=== PATIENT | male | born 1985 | race Caucasian/White ===

== ENCOUNTER 2021-12-16 18:07 | Emergency (ER) | payer MEDICAID ==
[~2021-12-16] VITALS: Ht 188 cm; Wt 140.0 kg
[2021-12-16 18:58] LABS: CLARITY,URINE CLEAR (Clear); COLOR,URINE YELLOW (Yellow); GLUCOSE, URINE NEGATIVE (Neg); KETONES,URINE NEGATIVE (Neg); LEUKOCYTE ESTERASE ,URINE NEGATIVE (Neg); NITRITES, URINE NEGATIVE (Neg); OCCULT BLOOD,URINE MODERATE (Neg); PROTEIN,URINE >=300 mg/dl (Neg); UROBILINOGEN,URINE 0.2 E.U/dL (0.2-1.0)
[2021-12-16 19:01] LABS: UA COLLECTION TYPE CLN CATCH MIDSTREAM
[2021-12-16 19:02] LABS: BASOPHILS # (AUTO) 0.1 X10'3 (0-0.2); BASOPHILS % (AUTO) 0.8 % (0-1); EOSINOPHILS # (AUTO) 0.4 X10'3 (0-0.9); EOSINOPHILS % (AUTO) 4.4 % (0-6); HEMATOCRIT 43.7 % (42.0-52.0); HEMOGLOBIN 15.4 g/dl (14.0-17.9); LYMPHOCYTES # (AUTO) 3.6 X10'3 (1.1-4.8); LYMPHOCYTES % (AUTO) 39.7 % (21-51); MEAN CORPUSCULAR HEMOGLOBIN 30.5 PG (27.0-31.0); MEAN CORPUSCULAR HGB CONC 35.2 g/dL (33.0-36.5); MEAN CORPUSCULAR VOLUME 86.7 FL (78-98); MEAN PLATELET VOLUME 7.7 FL (7.4-10.4); MONOCYTES # (AUTO) 0.7 X10'3 (0-0.9); MONOCYTES % (AUTO) 7.6 % (2-12); NEUTROPHILS # (AUTO) 4.3 X10'3 (1.8-7.7); NEUTROPHILS % (AUTO) 47.5 % (42-75); PLATELET COUNT 257 X10'3 (140-440); RED BLOOD COUNT 5.04 X10'6 (4.70-6.10); RED CELL DISTRIBUTION WIDTH 12.9 % (11.5-14.5); WHITE BLOOD COUNT 9.1 X10'3 (4.5-11.0)
[2021-12-16 19:14] LABS: ALANINE AMINOTRANSFERASE 32 U/L (12-78); ALBUMIN 2.7 G/DL (3.4-5.0); ALBUMIN/GLOBULIN RATIO 0.7 (1.1-1.5); ALKALINE PHOSPHATASE 72 IU/L (46-116); ANION GAP 8 (8-16); ASPARTATE AMINO TRANSFERASE 17 U/L (10-37); BILIRUBIN,TOTAL 0.4 MG/DL (0.1-1.0); BLOOD UREA NITROGEN 19 MG/DL (7-18); BUN/CREATININE RATIO 18.1 (5.4-32.0); CALCIUM 8.4 MG/DL (8.5-10.1); CHLORIDE 109 MMOL/L (99-107); CREATININE 1.05 MG/DL (0.60-1.10); GLUCOSE 114 MG/DL (70-104); POTASSIUM 4.1 MMOL/L (3.5-5.1); SODIUM 142 MMOL/L (135-145); TOTAL CARBON DIOXIDE 25.3 MMOL/L (24-32); TOTAL PROTEIN 6.5 G/DL (6.4-8.2); eGFR 80 ML/MIN
[2021-12-16 19:17] LABS: LIPASE 102 U/L (73-393)
[2021-12-16 19:20] LABS: BACTERIA,URINE FEW /HPF (Neg); MUCUS STRANDS FEW /LPF (Neg); RBC,URINE 0-2 /HPF (0-2); SQUAMOUS EPITHELIAL CELL,UR FEW /LPF (FEW)
[2021-12-16 19:21] LABS: HYALINE CASTS 0-3 /LPF (NEGATIVE)
[2021-12-16] MEDS ORDERED: CEPH-585 PO (22:09)
[2021-12-16] MEDS ORDERED: ketorolac trometh inj. 60 MG/2 ML VIAL IM ONE (22:10)
[2021-12-16] MEDS ORDERED: cephalexin 250mg capsule PO ONE (22:10)
[2021-12-16 22:35] VITALS: BP 141/74
== END 2021-12-16 22:39 | disposition home or self-care (01) ==
LOC: ER 18:09
DX: S36.32XA Contusion of stomach, initial encounter (principal); N39.0 Urinary tract infection, site not specified; J45.909 Unspecified asthma, uncomplicated; F17.210 Nicotine dependence, cigarettes, uncomplicated; Z79.2 Long term (current) use of antibiotics; X58.XXXA Exposure to other specified factors, initial encounter; Y93.89 Activity, other specified; Y92.89 Other specified places as the place of occurrence of the external cause; Y99.8 Other external cause status
CPT/HCPCS: 36415; 71045; 74176; 80053; 81001; 83690; 84484; 85025; 85610; 87088; 93005; 96372; 99285; J1885

== ENCOUNTER 2022-01-28 11:24 | Emergency (ER) | payer MEDICAID ==
[~2022-01-28] VITALS: Ht 185.4 cm; Wt 159.1 kg
[~2022-01-28 11:24] MED LIST: CEPH-585 PO
[2022-01-28 11:29] VITALS: BP 157/94
[2022-01-28] MEDS ORDERED: HYDROcodone/acetaminophen 5mg/325mg tablet PO ONE (11:45)
[2022-01-28] MEDS ORDERED: ketorolac trometh inj. 60 MG/2 ML VIAL IM ONE (11:45)
[2022-01-28] MEDS ORDERED: ipratropium/albuterol 3ml nebule NEB ONE (12:25)
[2022-01-28 12:32] LABS: BASOPHILS # (AUTO) 0.2 X10'3 (0-0.2); BASOPHILS % (AUTO) 1.5 % (0-1); EOSINOPHILS # (AUTO) 0.4 X10'3 (0-0.9); EOSINOPHILS % (AUTO) 3.1 % (0-6); HEMATOCRIT 48.6 % (42.0-52.0); HEMOGLOBIN 16.6 g/dl (14.0-17.9); LYMPHOCYTES # (AUTO) 2.8 X10'3 (1.1-4.8); LYMPHOCYTES % (AUTO) 24.9 % (21-51); MEAN CORPUSCULAR HEMOGLOBIN 29.7 PG (27.0-31.0); MEAN CORPUSCULAR HGB CONC 34.2 g/dL (33.0-36.5); MEAN CORPUSCULAR VOLUME 86.9 FL (78-98); MEAN PLATELET VOLUME 8.6 FL (7.4-10.4); MONOCYTES # (AUTO) 0.6 X10'3 (0-0.9); MONOCYTES % (AUTO) 4.8 % (2-12); NEUTROPHILS # (AUTO) 7.5 X10'3 (1.8-7.7); NEUTROPHILS % (AUTO) 65.7 % (42-75); PLATELET COUNT 284 X10'3 (140-440); RED BLOOD COUNT 5.59 X10'6 (4.70-6.10); WHITE BLOOD COUNT 11.5 X10'3 (4.5-11.0)
[2022-01-28 12:46] LABS: ALANINE AMINOTRANSFERASE 33 U/L (12-78); ALBUMIN 2.7 G/DL (3.4-5.0); ALBUMIN/GLOBULIN RATIO 0.7 (1.1-1.5); ALKALINE PHOSPHATASE 68 IU/L (46-116); ANION GAP 10 (8-16); ASPARTATE AMINO TRANSFERASE 19 U/L (10-37); BILIRUBIN,TOTAL 0.4 MG/DL (0.1-1.0); BLOOD UREA NITROGEN 13 MG/DL (7-18); BUN/CREATININE RATIO 15.9 (5.4-32.0); CALCIUM 8.9 MG/DL (8.5-10.1); CHLORIDE 107 MMOL/L (99-107); CREATININE 0.82 MG/DL (0.60-1.10); GLUCOSE 113 MG/DL (70-104); POTASSIUM 4.4 MMOL/L (3.5-5.1); SODIUM 141 MMOL/L (135-145); TOTAL CARBON DIOXIDE 24.2 MMOL/L (24-32); TOTAL PROTEIN 6.5 G/DL (6.4-8.2); eGFR > 90 ML/MIN
[2022-01-28] MEDS ORDERED: INDO50CA96 PO ×3 (13:04→13:07)
[2022-01-28] MEDS ORDERED: HYDR-3965 PO (13:04)
[2022-01-28] MEDS ORDERED: ALLO100T PO ×3 (13:04→13:07)
[2022-01-28] MEDS ORDERED: COLC0.6T72 PO (13:06)
== END 2022-01-28 13:18 | disposition home or self-care (01) ==
LOC: ER 11:25
DX: M10.9 Gout, unspecified (principal); J45.909 Unspecified asthma, uncomplicated; Z79.899 Other long term (current) drug therapy
CPT/HCPCS: 36415; 71045; 80053; 84550; 85025; 85651; 94640; 96372; 99284; J1885; 94760

== ENCOUNTER 2022-01-30 05:30 | Emergency (ER) | payer MEDICAID ==
[~2022-01-30] VITALS: Ht 185.4 cm; Wt 136.4 kg
[~2022-01-30 05:30] MED LIST changes: +ALLO100T PO; +COLC0.6T72 PO; +HYDR-3965 PO; +INDO50CA96 PO
[2022-01-30 05:40] VITALS: BP 139/112
[2022-01-30] MEDS ORDERED: ketorolac trometh. 30mg/ml inj. IM ONE (06:10)
--- NOTE | 2022-01-30 08:16 | NUR ---
PT STATES HE IS LEAVING
== END 2022-01-30 10:15 | disposition left against medical advice (07) ==
LOC: ER 05:30
DX: M79.606 Pain in leg, unspecified (principal); M10.9 Gout, unspecified; Z53.21 Procedure and treatment not carried out due to patient leaving prior to being seen by health care provider

== ENCOUNTER 2022-02-13 06:15 | Emergency (ER) | payer MEDICAID ==
[~2022-02-13] VITALS: Ht 185.4 cm; Wt 145.4 kg
[2022-02-13 06:32] VITALS: BP 165/89
[2022-02-13 07:45] LABS: BASOPHILS # (AUTO) 0.1 X10'3 (0-0.2); BASOPHILS % (AUTO) 0.9 % (0-1); EOSINOPHILS # (AUTO) 0.3 X10'3 (0-0.9); EOSINOPHILS % (AUTO) 4.3 % (0-6); HEMATOCRIT 48.7 % (42.0-52.0); HEMOGLOBIN 16.9 g/dl (14.0-17.9); LYMPHOCYTES # (AUTO) 2.6 X10'3 (1.1-4.8); LYMPHOCYTES % (AUTO) 32.9 % (21-51); MEAN CORPUSCULAR HEMOGLOBIN 30.4 PG (27.0-31.0); MEAN CORPUSCULAR HGB CONC 34.6 g/dL (33.0-36.5); MEAN CORPUSCULAR VOLUME 87.9 FL (78-98); MEAN PLATELET VOLUME 7.9 FL (7.4-10.4); MONOCYTES # (AUTO) 0.5 X10'3 (0-0.9); MONOCYTES % (AUTO) 6.2 % (2-12); NEUTROPHILS # (AUTO) 4.4 X10'3 (1.8-7.7); NEUTROPHILS % (AUTO) 55.7 % (42-75); PLATELET COUNT 304 X10'3 (140-440); RED BLOOD COUNT 5.54 X10'6 (4.70-6.10); RED CELL DISTRIBUTION WIDTH 13.2 % (11.5-14.5); WHITE BLOOD COUNT 7.9 X10'3 (4.5-11.0)
[2022-02-13 08:00] LABS: ALANINE AMINOTRANSFERASE 44 U/L (12-78); ALBUMIN 2.5 G/DL (3.4-5.0); ALBUMIN/GLOBULIN RATIO 0.7 (1.1-1.5); ALKALINE PHOSPHATASE 74 IU/L (46-116); BILIRUBIN,TOTAL 0.7 MG/DL (0.1-1.0); BLOOD UREA NITROGEN 19 MG/DL (7-18); BUN/CREATININE RATIO 19.8 (5.4-32.0); CALCIUM 8.7 MG/DL (8.5-10.1); CREATININE 0.96 MG/DL (0.60-1.10); GLUCOSE 121 MG/DL (70-104); MAGNESIUM 1.8 MG/DL (1.5-2.4); TOTAL CARBON DIOXIDE 21.1 MMOL/L (24-32); TOTAL PROTEIN 6.1 G/DL (6.4-8.2); eGFR 89 ML/MIN
[2022-02-13 08:16] LABS: ANION GAP 8 (8-16); CHLORIDE 106 MMOL/L (99-107); POTASSIUM 4.4 MMOL/L (3.5-5.1); SODIUM 135 MMOL/L (135-145)
[2022-02-13 08:36] LABS: ASPARTATE AMINO TRANSFERASE 24 U/L (10-37)
[2022-02-13] MEDS ORDERED: colchicine 0.6mg tablet PO ONE (09:00)
[2022-02-13] MEDS ORDERED: triamcinolone acetonide 40mg/ml inj IM ONE (09:00)
[2022-02-13] MEDS ORDERED: naproxen 500mg tablet PO ONE (09:00)
[2022-02-13] MEDS ORDERED: INDO50CA96 PO (09:09)
[2022-02-13] MEDS ORDERED: COLC1TAB2 PO (09:09)
== END 2022-02-13 09:27 | disposition home or self-care (01) ==
LOC: ER 06:16
DX: R22.41 Localized swelling, mass and lump, right lower limb (principal); M10.9 Gout, unspecified; J45.909 Unspecified asthma, uncomplicated; Z79.899 Other long term (current) drug therapy; Z79.2 Long term (current) use of antibiotics
CPT/HCPCS: 36415; 80053; 83735; 83880; 85025; 93971; 96372; 99284; J3301

== ENCOUNTER 2022-02-22 06:55 | Emergency (ER) | payer MEDICAID ==
[~2022-02-22] VITALS: Ht 185.4 cm; Wt 150.0 kg
[~2022-02-22 06:55] MED LIST changes: +COLC1TAB2 PO
[2022-02-22 08:40] VITALS: BP 176/91
[2022-02-22] MEDS ORDERED: naproxen 500mg tablet PO ONE (09:25)
[2022-02-22 09:55] LABS: CLARITY,URINE CLEAR (Clear); COLOR,URINE YELLOW (Yellow); GLUCOSE, URINE NEGATIVE (Neg); KETONES,URINE NEGATIVE (Neg); LEUKOCYTE ESTERASE ,URINE NEGATIVE (Neg); NITRITES, URINE NEGATIVE (Neg); OCCULT BLOOD,URINE MODERATE (Neg); PROTEIN,URINE >=300 mg/dl (Neg); UROBILINOGEN,URINE 0.2 E.U/dL (0.2-1.0)
[2022-02-22 10:02] LABS: UA COLLECTION TYPE CLN CATCH MIDSTREAM
[2022-02-22 10:07] LABS: BACTERIA,URINE NONE SEEN /HPF (Neg); SQUAMOUS EPITHELIAL CELL,UR FEW /LPF (FEW); WBC,URINE 0-4 /HPF (0-4)
[2022-02-22 10:19] LABS: BASOPHILS # (AUTO) 0.1 X10'3 (0-0.2); BASOPHILS % (AUTO) 0.5 % (0-1); EOSINOPHILS # (AUTO) 0.2 X10'3 (0-0.9); EOSINOPHILS % (AUTO) 1.6 % (0-6); HEMATOCRIT 49.5 % (42.0-52.0); LYMPHOCYTES # (AUTO) 1.3 X10'3 (1.1-4.8); LYMPHOCYTES % (AUTO) 11.1 % (21-51); MEAN CORPUSCULAR HEMOGLOBIN 30.3 PG (27.0-31.0); MEAN CORPUSCULAR HGB CONC 34.3 g/dL (33.0-36.5); MEAN CORPUSCULAR VOLUME 88.2 FL (78-98); MEAN PLATELET VOLUME 8.4 FL (7.4-10.4); MONOCYTES # (AUTO) 0.9 X10'3 (0-0.9); MONOCYTES % (AUTO) 7.5 % (2-12); NEUTROPHILS # (AUTO) 9.2 X10'3 (1.8-7.7); NEUTROPHILS % (AUTO) 79.3 % (42-75); PLATELET COUNT 280 X10'3 (140-440); RED BLOOD COUNT 5.61 X10'6 (4.70-6.10); RED CELL DISTRIBUTION WIDTH 13.8 % (11.5-14.5); WHITE BLOOD COUNT 11.7 X10'3 (4.5-11.0)
[2022-02-22 10:29] LABS: ALANINE AMINOTRANSFERASE 30 U/L (12-78); ALBUMIN 2.6 G/DL (3.4-5.0); ALBUMIN/GLOBULIN RATIO 0.7 (1.1-1.5); ALKALINE PHOSPHATASE 67 IU/L (46-116); ANION GAP 9 (8-16); ASPARTATE AMINO TRANSFERASE 14 U/L (10-37); BILIRUBIN,TOTAL 0.5 MG/DL (0.1-1.0); BLOOD UREA NITROGEN 16 MG/DL (7-18); BUN/CREATININE RATIO 18.2 (5.4-32.0); CALCIUM 8.8 MG/DL (8.5-10.1); CHLORIDE 108 MMOL/L (99-107); CREATININE 0.88 MG/DL (0.60-1.10); GLUCOSE 121 MG/DL (70-104); LIPASE 147 U/L (73-393); POTASSIUM 4.2 MMOL/L (3.5-5.1); SODIUM 141 MMOL/L (135-145); TOTAL PROTEIN 6.1 G/DL (6.4-8.2); eGFR > 90 ML/MIN
[2022-02-22] MEDS ORDERED: NAPR-56 PO (10:43)
== END 2022-02-22 11:28 | disposition home or self-care (01) ==
LOC: ER 06:57
DX: U07.1 COVID-19 (principal); J45.909 Unspecified asthma, uncomplicated; F17.200 Nicotine dependence, unspecified, uncomplicated
CPT/HCPCS: 36415; 80053; 81001; 83690; 84550; 85025; 99283

== ENCOUNTER 2025-06-09 08:13 | Inpatient (IN) | payer MEDICAID ==
[~2025-06-09] VITALS: Ht 188 cm; Wt 126.5 kg
[~2025-06-09 08:13] MED LIST changes: -CEPH-585 PO; -COLC0.6T72 PO; +COLC0.6T78 PO; -COLC1TAB2 PO; +NAPR-56 PO; +PROB1TAB2 PO
[2025-06-09 09:21] LABS: MEAN PLATELET VOLUME 7.9 FL (7.4-10.4); RED CELL DISTRIBUTION WIDTH 13.6 % (11.5-14.5)
--- NOTE | 2025-06-09 09:22 | Physician Documentation ---
History of Present Illness ~ General Chief Complaint: See Chief Complaint Stated Complaint: ABNORMAL LABS Time Seen by MD: 09:06 Primary Medical Doctor: No PCP Mode of Arrival: EMS History of Present Illness Initial Comments This 40-year-old male patient with a history of kidney disease was transferred here from [facility] for consult with Nephrology secondary to acute renal failure failure with a an increased creatinine of 7.26 in elevated BUN. Patient does have a history of hypertension and has been noncompliant with his medications. 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 Patient is currently asymptomatic States he has never had dialysis Medication Reconciliation Allergies: Coded Allergies: No Known Allergies (Unverified , 02/22/22) Scheduled Apixaban (Eliquis), 1 TAB PO BID, (Reported) Atorvastatin Calcium (Atorvastatin Calcium), 1 TAB PO HS, (Reported) Furosemide (Furosemide), 1 TAB PO DAILY, (Reported) Lisinopril (Lisinopril), 1 TAB PO DAILY, (Reported) Pantoprazole Sodium (Pantoprazole Sodium), 1 TAB PO BID, (Reported) Potassium Chloride (Klor-Con 8), 1 TAB PO DAILY, (Reported) Sodium Bicarbonate (Antacid), 1 TAB PO TID, (Reported) Tiotropium [place] (Spiriva), 1 CAP INH DAILY, (Reported) Scheduled PRN Albuterol Sulfate (Albuterol Sulfate), 3 ML NEB Q4H PRN for SOB or wheezing, (Reported) Albuterol Sulfate/Budesonide (Airsupra 90-80 Mcg Inhaler), 2 PUFFS INH for SOB or wheezing, (Reported) Clonidine HCl (Clonidine HCl), 1 TAB PO BID PRN for anxiety, (Reported) Discontinued Medications Allopurinol* (Allopurinol*), 1 TAB PO DAILY PRN for gout Discontinued Reason: patient no longer taking Colchicine (Colchicine), 1 TAB PO DAILY Discontinued Reason: patient no longer taking Colchicine/Probenecid (Probenecid-Colchicine Tabs), 1 TAB PO TID Discontinued Reason: patient no longer taking Hydrocodone Bit/Acetaminophen 5/325 MG ([place] 5/325 MG), 1 TABLET PO TID PRN for pain Discontinued Reason: patient no longer taking Indomethacin (Indomethacin), 1 CAP PO Q8H Discontinued Reason: completed med therapy Naproxen (Naproxen), 1 TAB PO Q12H Discontinued Reason: patient no longer taking Past Medical History Past Medical History: Asthma, Gout Past Surgical History: no surgical history Smoking Status: Current every day smoker Alcohol Use: None Drug Use: none Lives with: Family Lives In: Home Physical Exam Physical Exam Vital Signs: Temperature: 97.8, Source: Oral, Heart Rate: 87, Respiratory Rate: 18, BP: 160/98, Pulse Oximetry: 96, Weight: 126.530 Oxygen Flow Rate: 0 Physical Exam General: Alert, no apparent distress. Respiratory: Lungs clear, no respiratory distress. Cardiovascular: Regular rate and rhythm, no murmurs. Gastrointestinal: Soft, nontender, nondistended. Bowels sounds present. Neurologic: Oriented x4. Psychiatric: Normal mood and affect. Skin: Normal color, warm and dry. No edema, no ecchymosis. Progress Results/Orders Results/Orders Orders - RIO PAIZ COLD MILL OPERATOR Page Hospitalist (06/09/25 ) Medications Received in ER Medications (Trade) Dose Ordered Sig/Roxanne Route PRN Reason Start Time Stop Time Status Last Admin Dose Admin (morphine inj.) 1 mg Q8H PRN IV moderate or severe pain 4-10 06/09/25 11:35 06/09/25 12:22 1 MG Vital Signs 06/09/25 06/09/25 08:18 09:32 Temp 97.8 Pulse 87 98 Resp 18 18 B/P (MAP) 160/98 180/150 (160) Pulse Ox 96 96 O2 Flow Rate 0 Laboratory Tests Test 06/09/25 09:15 White Blood Count 9.5 Red Blood Count 3.73 L Hemoglobin 11.4 L Hematocrit 33.6 L Mean Corpuscular Volume 90.0 Mean Corpuscular Hemoglobin 30.6 Mean Corpuscular Hemoglobin Concent 34.0 Red Cell Distribution Width 13.6 Platelet Count 201 Mean Platelet Volume 7.9 Neutrophils (%) (Auto) 96.2 H Lymphocytes (%) (Auto) 3.0 L Monocytes (%) (Auto) 0.5 L Eosinophils (%) (Auto) 0 Basophils (%) (Auto) 0.3 Neutrophils # (Auto) 9.2 H Lymphocytes # (Auto) 0.3 L Monocytes # (Auto) 0.1 Eosinophils # (Auto) 0.0 Basophils # (Auto) 0.0 CBC Comment Sodium Level 142 Potassium Level 5.1 Chloride Level 112 H Carbon Dioxide Level 17.1 L Anion Gap 13 Blood Urea Nitrogen 45 H Creatinine 7.32 H Estimated GFR/1.73 m2 8 BUN/Creatinine Ratio 6.1 L Glucose Level 148 H Calcium Level 7.7 L Phosphorus Level 6.2 H Magnesium Level 2.5 H Ferritin 199 Albumin 2.5 L Chemistry Comments Medical Decision Making Additional information obtaine: old records Findings Patient was admitted for evaluation by Nephrology and probable dialysis Differential Diagnosis t Departure Disposition: 09 ADMITTED INPATIENT Impression: Primary Impression: MARIAM (acute kidney injury) Condition: Stable Referrals: NO PRIMARY CARE PROVIDER (PCP) Critical Care Note Total Time (mins): 30 Critical Care Note The very real possibility of a deterioration of this patient's condition required the highest level of my preparedness for sudden, emergent intervention. I provided critical care services, which included medication orders, frequent reevaluations of the patient's condition and response to treatment, ordering and reviewing test results, and discussing the case with various consultants. Excludes time spent performing separately billable procedures. The critical care time associated with the care of the patient was. Signature Scribe Signature: g Attestation: Scribed for Rio Paiz Towel Inspector by Rio Vargas NP . 06/09/25 11:31 RIO PAIZ COLD MILL OPERATOR Jun 09, 2025 09:22
[2025-06-09 09:46] LABS: CREATININE 7.32 MG/DL (0.60-1.10); TOTAL CARBON DIOXIDE 17.1 MMOL/L (24-32); eCRCL 16 ML/MIN; eGFR 8 ML/MIN
[2025-06-09] MEDS ORDERED: bisacodyl 10mg suppository rectal RC PRN (11:35)
[2025-06-09] MEDS ORDERED: magnesium sulf-water 2g/50mL 50 ML IV PRN (11:35)
[2025-06-09] MEDS ORDERED: potassium Cl 20 mEq SR tablet PO PRN ×2 (11:35)
[2025-06-09] MEDS ORDERED: ondansetron/PF 4mg/2ml inj IV PRN (11:35)
[2025-06-09] MEDS ORDERED: magnesium Cl slow-release 64mg tablet PO PRN (11:35)
[2025-06-09] MEDS ORDERED: magnesium sulf-water 4G/100mL 100 ML IV PRN (11:35)
[2025-06-09] MEDS ORDERED: potassium Cl 40MEQ/1/2NS 520ml 520 ML IV PRN (11:35)
--- NOTE | 2025-06-09 12:25 | RADIOLOGY REPORT ---
RENAL ULTRASOUND REASON FOR EXAM: acute renal failure COMPARISON: CT ABDOMEN PELVIS on DOS: 12/16/21 TECHNIQUE: Real-time sector scans in multiple planes were obtained over the kidneys, ureters and bladder. FINDINGS: Images are suboptimal due to patient body habitus. The right kidney measures 12.0 cm. The left kidney measures 10.9 cm. No mass is identified. There is no hydronephrosis. The urinary bladder could not be evaluated as the patient was unable to lie still for examination. IMPRESSION: Normal sonographic appearance of the kidneys. No abnormality identified within the limitations of patient body habitus and motion.
[2025-06-09] MEDS: sodium bicarbonate (8.4%) inj. 50 MEQ in dextrose 5%-water 1,000 ML IV SCH (12:34)
[2025-06-09] MEDS: cloNIDine 0.2 MG/24 HR patch (7 day patch) TD SCH (13:08)
[2025-06-09] MEDS: PERFLUTREN PROTEIN-A MICROSPHR (Optison) 0.22 MG/ML 3ML VIAL IV ONE (13:14)
[2025-06-09 13:23] LABS: PHOSPHORUS 6.2 MG/DL (2.3-4.5)
--- NOTE | 2025-06-09 13:54 | RADIOLOGY REPORT ---
CHEST RADIOGRAPH Indication: MARIAM - assess for pleural effusion Technique: Single frontal view of the chest was obtained Comparison: CHEST,SINGLE VIEW on DOS: 01/28/22, CHEST,SINGLE VIEW on DOS: 12/16/21 FINDINGS: Lines and Tubes: None Lungs: No focal consolidation. Pleura: No effusion. No pneumothorax. Cardiomediastinal contours: Unremarkable Bones: No acute osseous abnormality. IMPRESSION: No acute cardiopulmonary disease.
[2025-06-09 14:07] LABS: % IRON SATURATION 15 % (11-46)
[2025-06-09 14:32] VITALS: PULSE 88; RESP 22; O2SAT 96
[2025-06-09] MEDS: ipratropium/albuterol 3ml nebule NEB PRN (14:32)
[2025-06-09 14:40] VITALS: PULSE 88; RESP 20
[2025-06-09] MEDS ORDERED: LISI20TA28 PO (15:18)
[2025-06-09] MEDS ORDERED: CLON0.2T PO (15:18)
[2025-06-09] MEDS ORDERED: ALBU10.7 INH (15:59)
[2025-06-09] MEDS ORDERED: ATOR40TA72 PO (15:59)
[2025-06-09] MEDS ORDERED: FURO20TA4 PO (15:59)
[2025-06-09] MEDS ORDERED: ALBU2.5V13 NEB (15:59)
[2025-06-09] MEDS ORDERED: APIX5TAB3 PO (15:59)
[2025-06-09] MEDS ORDERED: TIOT18CA3 INH (15:59)
[2025-06-09] MEDS ORDERED: SODI650T29 PO (15:59)
[2025-06-09] MEDS ORDERED: PANT40TA54 PO (15:59)
[2025-06-09] MEDS ORDERED: POTA8TAB69 PO (15:59)
--- NOTE | 2025-06-09 18:37 | CARDIOLOGY REPORT ---
APPROVED REPORT EXAM: Comprehensive 2D, Doppler, and color-flow Echocardiogram. Patient Location: ER 6 Blood Pressure: 167/96 mmHg Heart Rate: 89 bpm Rhythm: SINUS Indications SHORTNESS OF BREATH HYPERTENSION Sex Offender Treatment Professional: none Previous echo: none 2D Dimensions RVDd 4.0 cm LA Diam 5.5 cm IVSd 1.2 (0.7-1.1cm) LVDd 5.0 cm PWd 1.7 (0.7-1.1cm) IVSs 1.4 (0.8-1.2cm) LVDs 3.2 (2.5-4.0cm) PWs 1.9 (0.8-1.2cm) LVOT Diameter 2.17 (1.8-2.4cm) LVEF(%) 63.5 (>50%) Ao Asc Diam. 3.17 cm FS (%) 34.5 % SV 70.8 ml CO 7.4 L/min M-Mode Dimensions Left Atrium(MM) 4.82 (2.5-4.0cm) IVSd 1.03 (0.7-1.1cm) LVDd 5.23 (4.0-5.6cm) Aortic Root 3.09 (2.2-3.7cm) PWd 1.36 (0.7-1.1cm) Aortic Cusp Exc 2.31 (1.5-2.0cm) IVSs 1.52 cm LVDs 3.50 (2.0-3.8cm) FS (%) 33 % PWs 1.52 cm ESV(Teich) 50.9 ml LVEF(%) 61 (>50%) Biplane 2D LA Volumes LA ESV Index 38.29 mL/m2 Aortic Valve AoV Peak Checo. 171.8 cm/s AoV VTI 33.9 cm AO Peak GR. 11.8 mmHg AO Mean GR. 6 mmHg LVOT VTI 30.83 cm LVOT Peak Checo. 154.8 cm/s ROBERT(VTI)/BSA 3.38 cm2/m2 ROBERT (VTI) 3.38 cm2 AV DI 0.91 % Mitral Valve MV E Velocity 111.1 cm/s MV Peak Gr. 13 mmHg MV DECEL TIME 136 ms MV A Velocity 140.5 cm/s MV PHT 44 ms E/A Ratio 0.8 MVA (PHT) 5.00 cm2 MV VMax 178.8 cm/s TDI Medial E' P. V 14.39 cm/s E/Medial E' 7.7 Pulmonary Vein S1 Velocity 66.0 cm/s D2 Velocity 42.4 cm/s PVa Velocity 32.6 cm/s PVa Duration 82 msec LEFT VENTRICLE Normal LV size and function. Mild concentric hypertrophy. Overall LVEF is 60-65%. RIGHT VENTRICLE RV is mildly dilated with normal systolic function. ATRIA Left atrium is moderately dilated. Right atrium size is normal. AORTIC VALVE Trileaflet AV appears mildly sclerotic without stenosis. Trace insufficiency. MITRAL VALVE Normal MV annulus without calcification or stenosis. Trace regurgitation. TRICUSPID VALVE TV appears structurally normal with trace regurgitation. PULMONIC VALVE Normal PV without stenosis, physiologic insufficiency. GREAT VESSELS Aortic root is normal in size. Ascending aorta is normal in size. PERICARDIUM Normal pericardium. No effusion. Other Information Study Quality: Adequate Conclusion Overall LVEF is 60-65%. Normal LV size and function. Mild concentric hypertrophy. RV is mildly dilated with normal systolic function. Trileaflet AV appears mildly sclerotic without stenosis. Trace insufficiency. Normal MV annulus without calcification or stenosis. Trace regurgitation. Normal PV without stenosis, physiologic insufficiency. Normal pericardium. No effusion.
[2025-06-09 19:21] LABS: CREATININE 7.86 MG/DL (0.60-1.10); PHOSPHORUS 5.5 MG/DL (2.3-4.5); TOTAL CARBON DIOXIDE 19.0 MMOL/L (24-32); eCRCL 15 ML/MIN; eGFR 8 ML/MIN
[2025-06-09] MEDS: K and/or MAG REPLACEMENT MC SCH (20:00)
[2025-06-09] MEDS: insulin regular, human 10 units/0.1 ml syringe SQ ONE ×2 (20:10→23:05)
[2025-06-09] MEDS: albuterol 2.5 MG/3 ML nebule NEB SCH (20:22)
[2025-06-09 20:25] VITALS: PULSE 98; RESP 18; O2SAT 97
[2025-06-09 20:29] VITALS: PULSE 107; RESP 18
--- NOTE | 2025-06-09 21:18 | HISTORY AND PHYSICAL ---
History & Physical Providers to CC ~ History of Present Illness Reason for Admit\Complaint: Acute renal failure History of Present Illness This 40-year-old male patient with a history of kidney disease was transferred here from [facility] for consult with Nephrology secondary to acute renal failure failure with a an increased creatinine of 7.26 in elevated BUN. Patient went to [facility] for shortness of breaths. He mentioned he has history of blood clot almost 1-1/2 years back diagnosed in [facility]. Patient does have a history of hypertension and has been noncompliant with his medications off and on . he is only taking lisinopril and clonidine currently . Clonidine he is taking for anxiety as per his medication bottle.Patient is current smoker one pack last three days for him. He use cannabis at night. Denied use of any alcohol use. 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 Patient is currently asymptomatic except for elevated blood pressure. Hospitalist services contacted for admission and further management. No other symptoms . Allergies: Coded Allergies: No Known Allergies (Unverified , 02/22/22) Home Medications Home Medications Active Reported Spiriva (Tiotropium [place]) 18 Mcg Cap.w.dev 1 Cap INH DAILY Antacid (Sodium Bicarbonate) 650 Mg Tablet 1 Tab PO TID Klor-Con 8 (Potassium Chloride) 8 Meq Tablet.er 1 Tab PO DAILY Atorvastatin Calcium 40 Mg Tablet 1 Tab PO HS Furosemide 20 Mg Tablet 1 Tab PO DAILY Eliquis (Apixaban) 5 Mg Tablet 1 Tab PO BID Pantoprazole Sodium 40 Mg Tablet.dr 1 Tab PO BID Airsupra 90-80 Mcg Inhaler (Albuterol Sulfate/Budesonide) 90 Mcg-80 Mcg/Actuation Hfa.aer.ad 2 Puffs INH PRN Albuterol Sulfate (Albuterol) 2.5 Mg/3 Ml (0.083 %) Vial.neb 3 Ml NEB Q4H PRN Lisinopril 20 Mg Tablet 1 Tab PO DAILY 30 Days Clonidine HCl 0.2 Mg Tablet 1 Tab PO BID PRN 30 Days Past Medical History Past Medical History History of blood clot in past , hypertension,? Anxiety , ? CHF Past Surgical History Surgical History Comment No pertinent surgical history Past Social History Social History Comment Patient is current smoker one pack last three days for him. He use cannabis at night. Denied use of any alcohol use. Patient is able to ambulate, lives with his 2-year-old Son. Exam Vitals: Vital Signs Date Time Temp Pulse Resp B/P (MAP) Pulse Ox O2 Delivery O2 Flow Rate FiO2 06/09/25 20:29 107 18 Room Air 0.0 06/09/25 20:25 97 21 06/09/25 17:37 164/110 (128) 06/09/25 08:18 97.8 General: General-patient not in any acute distress, alert awake oriented, obese, age- appropriate,appear anxious HEENT-atraumatic normocephalic, neck supple without elevated JVD, no thyromegaly or carotid bruit. No lymphadenopathy bilaterally. Eyes-no icterus or pallor seen in eyes Chest-clear to auscultation bilaterally, breathing nonlabored no tachypnea, no wheezing, no crepitation, no crackles. Heart-S1-S2 normal, regular heart rate no murmur Abdomen bowel sounds positive on auscultation, soft nondistended nontender no guarding, no rigidity Skin no active skin rash Neurology-grossly intact, nonfocal alert awake oriented Extremity- no pedal edema able to move all 4 extremities Psychiatry - patient is not confused or agitated cooperated during physical examination, appear anxious Diagnostic Data Last Recorded Lab Results: 06/09/25 0915 06/09/25 1857 Advance Care Planning Advanced Care plannin - 30 Minutes Additional Plan This 40-year-old male patient with a history of kidney disease was transferred here from [facility] for consult with Nephrology secondary to acute renal failure failure with a an increased creatinine of 7.26 in elevated BUN. Patient went to [facility] for shortness of breath. Patient is admitted today for acute renal failure, uncontrolled hypertension. Nephrology consultation requested from Dr. Coleman who is willing to see the patient tomorrow. Patient is started on IV fluids with soda bicarbonate, ordered renal ultrasound. Antihypertensive medication started for uncontrolled blood pressure. We will continue to monitor patient's labs and vitals closely . Needs physical therapy evaluation before discharge . Code status discussed with the patient patient wishes full code. Time spent in discussing code status 16 minutes. We will do home medication reconciliation once updated in electronic by nursing staff or pharmacist. Further management depending on response to treatment and as per recommendation by Nephrology specialist , Dr Jared . I will continue to follow patient in a.m. Date of Service: Jun 09, 2025 Billing Provider: RAMIRO SEGOVIA MD Common Visit Codes: 85071-[id number] INP/OBS CARE (HIGH) Secondary Visit Codes: 44140-[id number] CARE PLAN 30 MINUTES RAMIRO SEGOVIA MD Jun 09, 2025 21:18
[2025-06-09] MEDS: CALCIUM GLUC 1gm/50ml NACL,iso 50 ML IV ONE (22:41)
[2025-06-09] MEDS: dextrose 50%-water 50ml dispensing syringe IV ONE (22:49)
[2025-06-09] MEDS: insulin regular, human 10 units/0.1 ml syringe IV STA (23:06)
[2025-06-09] MEDS: sodium bicarbonate (8.4%) inj. 150 MEQ in dextrose 5%-water 1,000 ML IV SCH (23:09)
[2025-06-09] MEDS: sodium polystyrene sulfonate 15gm/60ml oral suspension PO ONE (23:11)
[2025-06-09] MEDS: heparin, porcine 5000 units/ml vial SQ SCH (23:17)
[2025-06-10] VITALS (26 sets, daily range): BP systolic 117–165; BP diastolic 65–91; PULSE 60–97; RESP 16–21; TEMP 97.2–98.3; O2SAT 89–97
[2025-06-10 00:03] LABS: LEUKOCYTE ESTERASE ,URINE NEGATIVE (Neg); NITRITES, URINE NEGATIVE (Neg); OCCULT BLOOD,URINE LARGE (Neg)
[2025-06-10 00:16] LABS: SQUAMOUS EPITHELIAL CELL,UR FEW /LPF (FEW); UA COLLECTION TYPE NON-SPECIFIED
[2025-06-10 02:43] LABS: CREATININE,URINE RANDOM 76.0 MG/DL
[2025-06-10 02:44] LABS: TOTAL PROTEIN,URINE RANDOM < 6.0 MG/DL
[2025-06-10 03:03] LABS: URINE AMPHETAMINE SCREEN NEGATIVE (Neg); URINE BARBITUATE SCREEN NEGATIVE (Neg); URINE BENZODIAZEPINES SCREEN NEGATIVE (Neg); URINE CANNABINOID SCREEN POSITIVE (Neg); URINE COCAINE SCREEN NEGATIVE (Neg); URINE METHADONE SCREEN NEGATIVE (Neg); URINE OPIATE SCREEN NEGATIVE (Neg); URINE PHENCYCLIDINE SCREEN NEGATIVE (Neg)
[2025-06-10 06:37] LABS: MEAN PLATELET VOLUME 7.7 FL (7.4-10.4); RED CELL DISTRIBUTION WIDTH 13.4 % (11.5-14.5)
[2025-06-10 07:03] LABS: CREATININE 7.77 MG/DL (0.60-1.10); LACTATE DEHYDROGENASE 222 U/L (85-227); PHOSPHORUS 7.0 MG/DL (2.3-4.5); TOTAL CARBON DIOXIDE 18.4 MMOL/L (24-32); eCRCL 15 ML/MIN; eGFR 8 ML/MIN
[2025-06-10 07:35] LABS: HIV ANTIBODY 1&2 RAPID NON-REACTIVE (Neg)
--- NOTE | 2025-06-10 08:13 | CONSULTATION REPORT ---
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 He has had a work up that ruled out serological disorders. He was found to have lot of interstitial changes as well along with the membranous nephropathy in the biopsy, when his creatinine was 5.1. He was prescribed Cytoxan, as he was not planning to have kid then, but patient recalls that he never got it filled. Also, his creatinine came down to 2.7ish when saw him for a follow up before he unfortunately . AT that time, he thought that the cytoxan was working for him. However, patient today tells me that he never went on it. also worked on referring him to transplant clinic for an evaluation. He was completely lost for follow up and yesterday he comes in to [facility] ER with a serum creatinine of 7+ with shortness of breath. he has had DVT about a year and a half ago, when h ws placed on liquis. He has been non compliant with his meds. He says he takes his lisinopril and clonidine but he forgets them as well frequently. He takes care of his 2 year old son as a single parent. He uses cannabis at night but no other drug abuse. He smokes 1 pack that lasts three days for him. He was in metabolic acidosis and hence he was transferred to [facility] for further care. His knowledge about his medical condition is very minimal. He is shell shocked today that he could potentially with his uncontrolled hypertension and his CKD 5 where he is now, and promises that he will buckle up henceforth and agrees to dialysis at [facility] three times a week without fail. He is also very motivated for renal transplant. will for completion sake, send off the serologyl. He has extensive tattoos all over the body. He says he does not have history of Hep B or C or HIV. I don't think he is taking the Eliquis at this time. Allergies: Coded Allergies: No Known Allergies (Unverified , 02/22/22) Home Medications Home Medications Active Reported Spiriva (Tiotropium [place]) 18 Mcg Cap.w.dev 1 Cap INH DAILY Antacid (Sodium Bicarbonate) 650 Mg Tablet 1 Tab PO TID Klor-Con 8 (Potassium Chloride) 8 Meq Tablet.er 1 Tab PO DAILY Atorvastatin Calcium 40 Mg Tablet 1 Tab PO HS Furosemide 20 Mg Tablet 1 Tab PO DAILY Eliquis (Apixaban) 5 Mg Tablet 1 Tab PO BID Pantoprazole Sodium 40 Mg Tablet.dr 1 Tab PO BID Airsupra 90-80 Mcg Inhaler (Albuterol Sulfate/Budesonide) 90 Mcg-80 Mcg/Actuation Hfa.aer.ad 2 Puffs INH PRN Albuterol Sulfate (Albuterol) 2.5 Mg/3 Ml (0.083 %) Vial.neb 3 Ml NEB Q4H PRN Lisinopril 20 Mg Tablet 1 Tab PO DAILY 30 Days Clonidine HCl 0.2 Mg Tablet 1 Tab PO BID PRN 30 Days Past Medical History Past Medical History History of blood clot in past , hypertension,? Anxiety , ? CHF CKD 5 membranous nephropathy biopsy proven. Past Surgical History Surgical History Comment nothing pertinent except kidney biopsy Past Social History Social History Comment Patient is current smoker one pack last three days for him. He use cannabis at night. Denied use of any alcohol use. Patient is able to ambulate, lives with his 2-year-old Son. ROS ROS extreme anxiety, depressed about the kidney disease, depressed about the need for dialysis, shortness of breath is better. has a good appetite. Exam Vitals: Vital Signs Date Time Temp Pulse Resp B/P (MAP) Pulse Ox O2 Delivery O2 Flow Rate FiO2 06/10/25 07:04 97 18 89 Room Air* 0 21 06/10/25 02:00 97.4 165/91 (115) General: Vital Signs: As above General: obese body habitus, no acute distress. Skin: No rashes, lumps, ulcers, blisters, purpura or petechiae HEENT: Anicteric sclera, HANH Neck: Supple and nontender without enlargement of the thyroid, or lymphadenopathy. Chest: Normal size and shape, no tenderness, CTA bilaterally Heart: Regular. No jugular venous distention, S1 and S2 heard , no gallop Abdomen: Soft and non tender no organomegaly,BS+ obese built. extensive tattoos all over the body Extremities: + pedal edema Neuro: Nonfocal. Diagnostic Data Last Recorded Lab Results: 06/10/2562306/10/25623 Problems: (1) ESRD (end stage renal disease) Assessment & Plan: hd to be started today. see below. 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 Now hehas advanced kidney disease and treating at this stage with cytoxan is not going to alter the course and the side effects of cytoxan can be prohibitive to use him at this time. will proceed with dialysis as soon as can get me a TDC placed. will start pacing him for outpatient dialysis in [facility] three times a week. renal diet strictly. renal dietitian consult. hypertension neeeds to be in absolute control. I have explained all these. I certainly hope and pray he remains compliant. i have spoken to Facility admin of [facility] (3) Accelerated hypertension Assessment & Plan: optimize meds. needs to be on ARB. will get him started on losartan and maximize it. sodium restriction to 2 g per day. (4) Anemia in CKD (chronic kidney disease) Assessment & Plan: epogen with dialysis. replace iron if necessary via iv based on the iron saturation (5) MARIAM (acute kidney injury) Status: Acute Assessment & Plan: proceed with dialysis. spent enough time with him today to explain the process. ALYSSA CUI MD Jun 10, 2025 08:13
[2025-06-10] MEDS ORDERED: albumin (human) 25% 100ml IV 100 ML IV PRN (08:15)
[2025-06-10] MEDS: iron sucrose complex injection 200 MG in normal saline 100ml IV soln 100 ML IV SCH (09:18)
[2025-06-10] MEDS ORDERED: midazolam 1 mg/ML 2ml injection ONE ×3 (10:24→11:02)
[2025-06-10] MEDS ORDERED: heparin 1,000unit/ml 10ml vial 10 ML ONE (10:24)
[2025-06-10] MEDS ORDERED: LIDOcaine 1% 30ml preserv. free vial ONE (10:24)
[2025-06-10] MEDS ORDERED: fentaNYL/PF 50MCG/1 ML 2ML syringe ONE ×2 (10:24→11:02)
[2025-06-10] MEDS ORDERED: heparin 1,000 UNITS/NS 500ml 500 ML ONE (11:03)
[2025-06-10] MEDS: EPOETIN ALFA-EPBX 20,000 UNIT/ML 1 ML MDV IV ONE (14:13)
[2025-06-10] MEDS: mannitol 12.5gm/50mL VIAL IV ONE (14:13)
[2025-06-10] MEDS: heparin 1,000 units/ml 10ml inj HE ONE ×2 (14:34→14:35)
[2025-06-10] MEDS: FLU VACC TS2025-26(6MOS UP)/PF (FLULAVAL) 45 MCG/0.5 ML SYRINGE IMVAC ONE (15:00)
[2025-06-10] MEDS: HYDROcodone/acetaminophen 5mg/325mg tablet PO PRN (16:18)
--- NOTE | 2025-06-10 18:43 | CARDIOLOGY REPORT ---
DATE OF SERVICE: 06/10/2025 DICTATING PHYSICIAN: ALBAN ROMAN DO PROCEDURE: Tunneled internal jugular dialysis catheter insertion. PREPROCEDURAL DIAGNOSIS: Chronic kidney disease. POSTPROCEDURAL DIAGNOSIS: Chronic kidney disease. PROCEDURES PERFORMED: 1. Right upper extremity venogram. 2. Placement of a 15.5-Japanese tunnel dialysis catheter. COMPLICATIONS: None. CONTRAST: Approximately 20 mL. SEDATION: Moderate with fentanyl and Versed. FLUOROSCOPY TIME: 0.5 minutes. CLINICAL HISTORY: Rapidly progressive renal insufficiency requiring a tunneled dialysis catheter for hemodialysis. DESCRIPTION OF PROCEDURE: With a right arm intravenous line in place, a contrast injection was performed so as to highlight the location of the right subclavian vein. Then, using a micropuncture set, the distal IJ and superior vena cava was easily entered and a small guidewire was placed in the central venous circulation. A small joshua was made around the guidewire and a second joshua approximately 8 cm distal and caudal to the small guidewire was also made. Using a blunt tunneling attachment to the dialysis catheter, a short anterior tunnel was made up to the guidewire and a 15.5-Japanese DuraMax catheter was brought through the tunnel in retrograde fashion. The transitional catheter for the micropuncture set was exchanged for a 0.035 guidewire. Then, using two progressively larger dilators, a 15-Japanese valved peel-away sheath was placed in the central venous circulation. The dialysis catheter was passed into the 15-Japanese sheath. The sheath was then peeled away and the catheter arc was placed beneath the skin. The skin was sutured over with two interrupted 4-0 Monocryl sutures. The proximal end of the dialysis catheter was then secured with nonabsorbable suture. Edges of the tunnel entry site were closed with 4-0 Monocryl. Fluoroscopy demonstrated that the dialysis catheter was in the mid right atrium. There were no complications. ALBAN ROMAN DO TID: [id number] RECEIPT: [id number] STEFANIA/JORGE AGUSTIN
--- NOTE | 2025-06-10 19:37 | PROGRESS NOTE ---
Daily Progress Note Providers to CC ~ Antibiotic Timeout Antibiotic Ordered?: No Subjective The patient has hyperkalemia has resolved however the patient is renal function has a unchanged and nephrology is arranging for dialysis Objective Vital Signs Date Time Temp Pulse Resp B/P (MAP) Pulse Ox O2 Delivery O2 Flow Rate FiO2 06/10/25 17:18 16 06/10/25 16:30 78 138/89 (105) 96 06/10/25 15:00 97.2 06/10/25 15:00 Nasal Cannula 3.0 06/10/25 07:04 21 Result Diagram: 06/10/2562306/10/25623 Gen. 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 Isabel securities and real estate director is arranging for dialysis Monitor daily metabolic panels # hyperkalemia Resolved with reversible measures and on Kayexalate # severe protein calorie malnutrition present on admission Registered dietitian will be evaluating the patient # hypertension Monitor blood pressure Q shift Due to hyperkalemia lisinopril is contraindicated Continue amlodipine # DVT prophylaxis SQ heparin Date of Service: Jun 10, 2025 Billing Provider: DARIN ACOSTA DO Common Visit Codes: [id number] INP/OBS CARE(HIGH) DARIN ACOSTA DO Jun 10, 2025 19:37
[2025-06-11] VITALS (26 sets, daily range): BP systolic 120–177; BP diastolic 64–92; PULSE 63–85; RESP 9–20; TEMP 97.7–98.5; O2SAT 88–97
[2025-06-11 06:31] LABS: CREATININE 6.62 MG/DL (0.60-1.10); PHOSPHORUS 7.4 MG/DL (2.3-4.5); TOTAL CARBON DIOXIDE 25.3 MMOL/L (24-32); eCRCL 17 ML/MIN; eGFR 9 ML/MIN
[2025-06-11 06:40] LABS: MEAN PLATELET VOLUME 8.2 FL (7.4-10.4); RED CELL DISTRIBUTION WIDTH 13.8 % (11.5-14.5)
[2025-06-11] MEDS ORDERED: albumin (human) 25% 100ml IV 100 ML IV PRN (08:30)
--- NOTE | 2025-06-11 08:30 | PROGRESS NOTE ---
Progress Note Dictate Providers to CC ~ Central Line/PICC still needed: Yes Central Line/PICC Necessity: Req HD/Plasmapheresis [place] Indications Met/Not Met: F/C Indications Not Met Antibiotic Ordered?: N/A Subjective Subjective remains emotional. awaits paperwork robby completed before [facility] will absorb him for outpatient dialysis. needs AV Fistula placement at some point. Objective Vitals Vital Signs Date Time Temp Pulse Resp B/P (MAP) Pulse Ox O2 Delivery O2 Flow Rate FiO2 06/11/25 07:21 75 18 Room Air 0.0 06/11/25 07:15 96 32 06/11/25 02:00 97.7 161/81 (107) Lab Results: 06/11/25 0544 06/11/25 0544 Objective Vital Signs: As above General: Normal body habitus, no acute distress. Skin: No rashes, lumps, ulcers, blisters, purpura or petechiae HEENT: Anicteric sclera, HANH Neck: Supple and nontender without enlargement of the thyroid, or lymphadenopathy. Chest: Normal size and shape, no tenderness, CTA bilaterally Heart: Regular. No jugular venous distention, S1 and S2 heard , no gallop Abdomen: Soft and non tender no organomegaly,BS+ Extremities: No pedal edema Neuro: Nonfocal. 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 Now hehas advanced kidney disease and treating at this stage with cytoxan is not going to alter the course and the side effects of cytoxan can be prohibitive to use him at this time. will proceed with dialysis as soon as can get me a TDC placed. will start pacing him for outpatient dialysis in [place] [facility] three times a week. renal diet strictly. renal dietitian consult. hypertension neeeds to be in absolute control. I have explained all these. I certainly hope and pray he remains compliant. i have spoken to Facility admin of [place] dialysis (3) Accelerated hypertension Assessment & Plan: optimize meds. needs to be on ARB. will get him started on losartan and maximize it. sodium restriction to 2 g per day. (4) Anemia in CKD (chronic kidney disease) Assessment & Plan: epogen with dialysis. replace iron if necessary via iv based on the iron saturation (5) MARIAM (acute kidney injury) Assessment & Plan: proceed with dialysis. spent enough time with him today to explain the process. ALYSSA CUI MD Jun 11, 2025 08:30
[2025-06-11 09:12] LABS: HBSAG SCREEN Negative (Negative)
[2025-06-11 11:09] LABS: ANTISTREPTOLYSIN O AB <20.0 IU/mL (0.0-200.0); COMPLEMENT C3, SERUM 129 mg/dL (82-167); COMPLEMENT C4, SERUM 32 mg/dL (12-38)
[2025-06-11 13:22] LABS: ANTINUCLEAR ANTIBODIES Negative (Negative)
--- NOTE | 2025-06-11 15:12 | RADIOLOGY REPORT ---
CHEST RADIOGRAPH Indication: TB CLEARANCE FOR DIALYSIS Technique: DI CHEST,SINGLE VIEW Comparison: None FINDINGS: Right IJ catheter tip projects over the SVC. The cardiac silhouette is unremarkable. The lungs demonstrate left basilar airspace opacities. The pulmonary vasculature is unremarkable. Small left pleural effusion. There is no pneumothorax. IMPRESSION: As above
[2025-06-11] MEDS: heparin 1,000 units/ml 10ml inj HE ONE ×2 (16:02→16:04)
[2025-06-11] MEDS: heparin 1,000unit/ml 10ml vial 10 ML IV ONE (16:03)
[2025-06-11] MEDS: heparin 1,000 units/ml 10ml inj IV ONE (16:04)
[2025-06-11] MEDS: EPOETIN ALFA-EPBX 20,000 UNIT/ML 1 ML MDV IV ONE (16:05)
[2025-06-11] MEDS: mannitol 12.5gm/50mL VIAL IV ONE (16:06)
--- NOTE | 2025-06-11 16:22 | RADIOLOGY REPORT ---
CLINICAL HISTORY: significant abdominal tenderness on exam TECHNIQUE: CT of the abdomen and pelvis was performed without intravenous contrast. This exam was performed according to our departmental dose optimization program. Up-to-date CT equipment and radiation dose reduction techniques are utilized as appropriate. CTDI: 34.07 DLP: 1964.53 WID: COMPARISON: CT ABDOMEN PELVIS on DOS: 12/16/21 FINDINGS: Lower Thorax: Bronchial wall thickening in the lung bases. Linear bibasilar scarring or atelectasis. Tiny centrilobular ground-glass nodules in the lung bases. Normal-sized heart. Trace left pleural effusion. Liver and Biliary system: Hepatomegaly measuring 20 cm craniocaudal. A few tiny hypodensities in the liver are not optimally evaluated without intravenous contrast, for example in segment 6 on series 2, image 37 gallbladder is normal caliber. There is no biliary ductal dilatation. Spleen: Unremarkable. Adrenal Glands and Kidneys: Unremarkable. Pancreas and Retroperitoneum: Grossly normal pancreas. Mildly prominent though predominantly normal-sized retroperitoneal lymph nodes. Aorta and Major Vessels: Aortoiliac vessels are normal in caliber. Bowel, Mesentery and Peritoneal space: Normal caliber small and large bowel. Normal appendix. There is no free air or fluid collection. Mild distal colonic diverticulosis. Pelvis: Unremarkable. Abdominal wall and Osseous Structures: Mild body wall edema. No destructive osseous lesion. Tiny sclerotic foci in the proximal femurs and pelvis, likely bone island. Mild multilevel lower thoracic and lumbar spondylosis. IMPRESSION: 1. No bowel obstruction, fluid collection, or free air. Normal appendix. 2. Mild distal colonic diverticulosis. 3. Mild body wall edema and trace left pleural effusion. 4. Tiny centrilobular ground-glass nodules in the lung bases which could reflect atypical infection. 5. Bronchial wall thickening lung bases which could be related to volume overload , infection or inflammation. 6. Mild hepatomegaly.
--- NOTE | 2025-06-11 20:47 | PROGRESS NOTE ---
Daily Progress Note Providers to CC ~ Antibiotic Timeout Antibiotic Ordered?: No Subjective The patient received a 2nd dialysis treatment today- the patient was very appreciative of all the medical staff. Objective Vital Signs Date Time Temp Pulse Resp B/P (MAP) Pulse Ox O2 Delivery O2 Flow Rate FiO2 06/11/25 20:11 15 06/11/25 19:47 84 Room Air 0.0 06/11/25 19:35 88 21 06/11/25 18:10 98.2 152/80 (104) Result Diagram: 06/11/25 0544 06/11/25 0544 Gen. 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 Isabel assistant media buyer is arranging for dialysis Monitor daily metabolic panels 06/11 received 2nd treatment of dialysis today # hyperkalemia Resolved with reversible measures and on Kayexalate Continue monitor daily labs # severe protein calorie malnutrition present on admission Registered dietitian will be evaluating the patient # hypertension Monitor blood pressure Q shift Due to hyperkalemia lisinopril is contraindicated Continue amlodipine and clonidine patch # DVT prophylaxis SQ heparin Sepsis Screening Skin Color: Normal Date of Service: Jun 11, 2025 Billing Provider: DARIN ACOSTA DO Common Visit Codes: [id number] INP/OBS CARE(HIGH) DARIN ACOSTA DO Jun 11, 2025 20:47
[2025-06-12] VITALS (20 sets, daily range): BP systolic 123–172; BP diastolic 69–104; PULSE 69–95; RESP 14–20; TEMP 97.7–98.6; O2SAT 90–97
[2025-06-12 06:02] LABS: HBSAG SCREEN Negative (Negative); HEP B CORE AB, TOT Negative (Negative); HEPATITIS C VIRUS ANTIBODY Non Reactive (Non Reactive)
[2025-06-12 07:48] LABS: MEAN PLATELET VOLUME 8.5 FL (7.4-10.4); RED CELL DISTRIBUTION WIDTH 13.3 % (11.5-14.5)
[2025-06-12 08:23] LABS: CREATININE 6.05 MG/DL (0.60-1.10); PHOSPHORUS 6.1 MG/DL (2.3-4.5); TOTAL CARBON DIOXIDE 25.5 MMOL/L (24-32); eCRCL 19 ML/MIN; eGFR 10 ML/MIN
[2025-06-12] MEDS ORDERED: albumin (human) 25% 100ml IV 100 ML IV PRN (08:45)
--- NOTE | 2025-06-12 08:47 | PROGRESS NOTE ---
Progress Note Dictate Providers to CC ~ Central Line/PICC still needed: Yes Central Line/PICC Necessity: Req HD/Plasmapheresis [place] Indications Met/Not Met: F/C Indications Not Met Antibiotic Ordered?: N/A Subjective Subjective the patient feels better. due for 4th hD today. awaiting chair time from [facility]. paperworks are being processed currently. awaiting hepatitis b clearance. Objective Vitals Vital Signs Date Time Temp Pulse Resp B/P (MAP) Pulse Ox O2 Delivery O2 Flow Rate FiO2 06/13/25 08:33 77 06/13/25 08:03 16 Room Air 0.0 06/13/25 07:55 92 21 06/13/25 06:00 98.2 135/59 (84) Lab Results: 06/13/25 0608 06/13/25 0608 Objective Vital Signs: As above General: Normal body habitus, no acute distress. Skin: No rashes, lumps, ulcers, blisters, purpura or petechiae HEENT: Anicteric sclera, HANH Neck: Supple and nontender without enlargement of the thyroid, or lymphadenopathy. Chest: Normal size and shape, no tenderness, CTA bilaterally Heart: Regular. No jugular venous distention, S1 and S2 heard , no gallop Abdomen: Soft and non tender no organomegaly,BS+ Extremities: No pedal edema Neuro: Nonfocal. Advance Care Planning Advanced Care plannin - 30 Minutes Problem\Assessment\Plan Problems/Diagnosis: (1) ESRD (end stage renal disease) Assessment & Plan: third HD today. outpt referral in progress. hopefully once we get a chair time, we can plan his discharge. Meanwhile, I don't think he needs to occupy the telemetry and can be moved to neuro or surgical floor. 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 Now hehas advanced kidney disease and treating at this stage with cytoxan is not going to alter the course and the side effects of cytoxan can be prohibitive to use him at this time. will proceed with dialysis as soon as can get me a TDC placed. will start pacing him for outpatient dialysis in [place] [facility] three times a week. renal diet strictly. renal dietitian consult. hypertension neeeds to be in absolute control. I have explained all these. I certainly hope and pray he remains compliant. i have spoken to Facility admin of [facility] (3) Accelerated hypertension Assessment & Plan: optimize meds. needs to be on ARB. will get him started on losartan and maximize it. sodium restriction to 2 g per day. (4) Anemia in CKD (chronic kidney disease) Assessment & Plan: epogen with dialysis as needed to keep the hb less than 10.5. replace iron if necessary via iv based on the iron saturation (5) MARIAM (acute kidney injury) Assessment & Plan: proceed with dialysis. spent enough time with him today to explain the process. Sepsis Screening Skin Color: Normal ALYSSA CUI MD Jun 12, 2025 08:47
[2025-06-12] MEDS: heparin 1,000unit/ml 10ml vial 10 ML IV ONE (11:00)
[2025-06-12] MEDS: heparin 1,000 units/ml 10ml inj HE ONE ×2 (11:01→11:02)
[2025-06-12] MEDS: heparin 1,000 units/ml 10ml inj IV ONE (11:01)
[2025-06-12 11:12] LABS: ATYPICAL PANCA <1:20 titer (Neg:<1:20); CYTOPLASMIC (C-ANCA) <1:20 titer (Neg:<1:20); PERINUCLEAR (P-ANCA) <1:20 titer (Neg:<1:20)
--- NOTE | 2025-06-12 19:41 | PROGRESS NOTE ---
Daily Progress Note Providers to CC ~ Antibiotic Timeout Antibiotic Ordered?: No Subjective The patient is hyper focused on getting more food double portions of protein were ordered- also I requested that is nursing reconsult registered dietitian to speak more in detailed about a low phosphorus diet with the patient Objective Vital Signs Date Time Temp Pulse Resp B/P (MAP) Pulse Ox O2 Delivery O2 Flow Rate FiO2 06/12/25 19:20 93 16 Room Air 0.0 06/12/25 19:08 91 21 06/12/25 15:00 97.7 148/85 (106) Result Diagram: 06/12/2563206/12/25632 Gen. 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 Isabel piano case and bench assembler is arranging for dialysis Monitor daily metabolic panels 06/11 received 2nd treatment of dialysis today 06/12 received 3rd dialysis treatment today # hyperkalemia Resolved with reversible measures and on Kayexalate Continue monitor daily labs # severe protein calorie malnutrition present on admission Registered dietitian will be evaluating the patient # hypertension Monitor blood pressure Q shift Due to hyperkalemia lisinopril is contraindicated Continue amlodipine and clonidine patch # DVT prophylaxis SQ heparin Disposition: Discharge home once chair time at [facility] dialysis is scheduled Sepsis Screening Skin Color: Normal Date of Service: Jun 12, 2025 Billing Provider: DARIN ACOSTA DO Common Visit Codes: [id number] INP/OBS CARE(HIGH) DARIN ACOSTA DO Jun 12, 2025 19:41
[2025-06-12] MEDS: polyethylene glycol 3350 17gm powd pack PO ONE (20:30)
[2025-06-13] VITALS (19 sets, daily range): BP systolic 131–144; BP diastolic 59–86; PULSE 74–95; RESP 14–29; TEMP 97.3–98.8; O2SAT 89–98
[2025-06-13 06:42] LABS: MEAN PLATELET VOLUME 7.5 FL (7.4-10.4); RED CELL DISTRIBUTION WIDTH 13.1 % (11.5-14.5)
[2025-06-13 07:01] LABS: CREATININE 6.49 MG/DL (0.60-1.10); PHOSPHORUS 5.1 MG/DL (2.3-4.5); TOTAL CARBON DIOXIDE 26.9 MMOL/L (24-32); eCRCL 18 ML/MIN; eGFR 10 ML/MIN
[2025-06-13] MEDS ORDERED: albumin (human) 25% 100ml IV 100 ML IV PRN (08:55)
--- NOTE | 2025-06-13 08:57 | PROGRESS NOTE ---
Progress Note Dictate Providers to CC ~ Central Line/PICC still needed: Yes Central Line/PICC Necessity: Req HD/Plasmapheresis [place] Indications Met/Not Met: F/C Indications Not Met Antibiotic Ordered?: N/A Subjective Subjective getting 4th day hd today. feels better. awaiting chair time in [facility] dialysis unit. has TDC which hurts a bit. Objective Vitals Vital Signs Date Time Temp Pulse Resp B/P (MAP) Pulse Ox O2 Delivery O2 Flow Rate FiO2 06/13/25 08:33 77 06/13/25 08:03 16 Room Air 0.0 06/13/25 07:55 92 21 06/13/25 06:00 98.2 135/59 (84) Lab Results: 06/13/25 0608 06/13/25 0608 Objective Vital Signs: As above General: Normal body habitus, no acute distress. Skin: No rashes, lumps, ulcers, blisters, purpura or petechiae HEENT: Anicteric sclera, HANH Neck: Supple and nontender without enlargement of the thyroid, or lymphadenopathy. Chest: Normal size and shape, no tenderness, CTA bilaterally Heart: Regular. No jugular venous distention, S1 and S2 heard , no gallop Abdomen: Soft and non tender no organomegaly,BS+ Extremities: No pedal edema Neuro: Nonfocal. Advance Care Planning Advanced Care plannin - 30 Minutes Problem\Assessment\Plan Problems/Diagnosis: (1) ESRD (end stage renal disease) Assessment & Plan: third HD today. outpt referral in progress. hopefully once we get a chair time, we can plan his discharge. Meanwhile, I don't think he needs to occupy the telemetry and can be moved to neuro or surgical floor. 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 Now hehas advanced kidney disease and treating at this stage with cytoxan is not going to alter the course and the side effects of cytoxan can be prohibitive to use him at this time. will proceed with dialysis as soon as can get me a TDC placed. will start pacing him for outpatient dialysis in [place] [facility] center three times a week. renal diet strictly. renal dietitian consult. hypertension neeeds to be in absolute control. I have explained all these. I certainly hope and pray he remains compliant. i have spoken to Facility admin of [facility] (3) Accelerated hypertension Assessment & Plan: optimize meds. needs to be on ARB. will get him started on losartan and maximize it. sodium restriction to 2 g per day. (4) Anemia in CKD (chronic kidney disease) Assessment & Plan: epogen with dialysis as needed to keep the hb less than 10.5. replace iron if necessary via iv based on the iron saturation (5) MARIAM (acute kidney injury) Assessment & Plan: proceed with dialysis. spent enough time with him today to explain the process. Sepsis Screening Skin Color: Normal ALYSSA CUI MD Jun 13, 2025 08:57
[2025-06-13] MEDS ORDERED: bisacodyl 10mg suppository rectal RC PRN (12:45)
[2025-06-13] MEDS ORDERED: mineral oil 133ml enema RC PRN (12:45)
--- NOTE | 2025-06-13 14:14 | VASCULAR REPORT ---
Left upper extremity venous duplex Clinical History: Left arm pain. Comparison: VL VENOUS on DOS: 02/13/22 Findings: Duplex Doppler evaluation of the left upper extremities from the internal jugular, subclavian, axillary, brachial, ulnar, radial deep vein and the basilic and cephalic superficial veins including color Doppler and spectral/pulsed waveform analysis was performed. The left internal jugular, subclavian, axillary, brachial, ulnar, radial veins are patent on grayscale images and color doppler assessment. There is noncompressible thrombus in the left cephalic vein consistent with superficial thrombophlebitis. Left basilic vein is patent. Impression: 1. No evidence of deep vein thrombosis in the left upper extremity. 2. Superficial thrombophlebitis in the left cephalic vein.
[2025-06-13] MEDS: lactulose 20gm/30ml cup PO SCH (14:44)
[2025-06-13] MEDS: EPOETIN ALFA-EPBX 20,000 UNIT/ML 1 ML MDV IV ONE (17:36)
[2025-06-13] MEDS: heparin 1,000 units/ml 10ml inj IV ONE (18:46)
[2025-06-13] MEDS: heparin 1,000unit/ml 10ml vial 10 ML IV ONE (18:47)
[2025-06-13] MEDS: heparin 1,000 units/ml 10ml inj HE ONE ×2 (18:47→18:48)
--- NOTE | 2025-06-13 20:09 | PROGRESS NOTE ---
Daily Progress Note Providers to CC ~ Antibiotic Timeout Antibiotic Ordered?: No Subjective The patient has developed swelling and redness and tenderness of his left upper extremity in the antecubital area where the IV was located a venous ultrasound was obtained which demonstrated an occlusion of the cephalic vein however no DVT was appreciated the IV was discontinued. The patient also states he has not had a bowel movement since being hospitalized. I added lactulose scheduled Metamucil at night Dulcolax suppository and a mineral oil enema Objective Vital Signs Date Time Temp Pulse Resp B/P (MAP) Pulse Ox O2 Delivery O2 Flow Rate FiO2 06/13/25 19:57 88 18 Room Air 0.0 06/13/25 19:50 98.8 132/81 (98) 96 06/13/25 19:47 32 Result Diagram: 06/13/25 0606/13/25 06 Gen. 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 Isabel forms builder is arranging for dialysis Monitor daily metabolic panels 06/11 received 2nd treatment of dialysis today 06/12 received 3rd dialysis treatment today # hyperkalemia Resolved with reversible measures and on Kayexalate Continue monitor daily labs # severe protein calorie malnutrition present on admission Registered dietitian will be evaluating the patient # hypertension Monitor blood pressure Q shift Due to hyperkalemia lisinopril is contraindicated Continue amlodipine and clonidine patch # left cephalic vein occlusive thrombosis DC IV on the left upper extremity # constipation Continue Colace Scheduled lactulose Nightly Metamucil PRN suppository PRN mineral oil enema # DVT prophylaxis SQ heparin Disposition: Discharge home once chair time at [place] dialysis is scheduled Sepsis Screening Skin Color: Normal Date of Service: Jun 13, 2025 Billing Provider: DARIN ACOSTA DO Common Visit Codes: [id number] INP/OBS CARE(HIGH) DARIN ACOSTA DO Jun 13, 2025 20:09
[2025-06-13] MEDS: psyllium seed 5.8 gm packet (sugar-free) PO SCH (20:33)
[2025-06-14] VITALS (17 sets, daily range): BP systolic 116–139; BP diastolic 51–80; PULSE 58–87; RESP 15–20; TEMP 97.8–98.9; O2SAT 91–93
[2025-06-14 07:08] LABS: MEAN PLATELET VOLUME 7.3 FL (7.4-10.4); RED CELL DISTRIBUTION WIDTH 13.2 % (11.5-14.5)
[2025-06-14 07:22] LABS: CREATININE 6.08 MG/DL (0.60-1.10); PHOSPHORUS 5.2 MG/DL (2.3-4.5); TOTAL CARBON DIOXIDE 26.5 MMOL/L (24-32); eCRCL 19 ML/MIN; eGFR 10 ML/MIN
--- NOTE | 2025-06-14 08:06 | PROGRESS NOTE ---
Progress Note Dictate Providers to CC ~ Central Line/PICC still needed: Yes Central Line/PICC Necessity: Req HD/Plasmapheresis [facility] Indications Met/Not Met: F/C Indications Not Met Antibiotic Ordered?: N/A Subjective Subjective feels ok. anxious about his kidney disease. has biopsy proven LEATHA 2R positive primary membranous nephropathy, that lost his follow up for more than a year, and tells me he never went on Cytoxan prescribed by in the past. Now is dialysis dependent ESRd. Needs referral to transplant as an outpatient. working on AVF referral to [facility] as outpatient. hopefully he can be discharged tomorrow after hd. Objective Vitals Vital Signs Date Time Temp Pulse Resp B/P (MAP) Pulse Ox O2 Delivery O2 Flow Rate FiO2 06/14/25 09:02 82 06/14/25 08:45 134/72 (92) 06/14/25 08:30 20 Room Air 0.0 06/14/25 08:25 93 21 06/14/25 06:00 98.9 Lab Results: 06/14/25 0644 06/14/25 0644 Objective Vital Signs: As above General: Normal body habitus, no acute distress. Skin: No rashes, lumps, ulcers, blisters, purpura or petechiae HEENT: Anicteric sclera, HANH Neck: Supple and nontender without enlargement of the thyroid, or lymphadenopathy. Chest: Normal size and shape, no tenderness, CTA bilaterally Heart: Regular. No jugular venous distention, S1 and S2 heard , no gallop Abdomen: Soft and non tender no organomegaly,BS+ Extremities: No pedal edema Neuro: Nonfocal. Advance Care Planning Advanced Care plannin - 30 Minutes Problem\Assessment\Plan Problems/Diagnosis: (1) ESRD (end stage renal disease) Assessment & Plan: 4th hd tomorrow.. outpt referral in progress. hopefully once we get a chair time, we can plan his discharge. Meanwhile, he got moved to non telemetry floor.. 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 Now hehas advanced kidney disease and treating at this stage with cytoxan is not going to alter the course and the side effects of cytoxan can be prohibitive to use him at this time. will proceed with dialysis as soon as can get me a TDC placed. will start pacing him for outpatient dialysis in [facility] center three times a week. renal diet strictly. renal dietitian consult. hypertension neeeds to be in absolute control. I have explained all these. I certainly hope and pray he remains compliant. i have spoken to Facility admin of [facility] (3) Accelerated hypertension Assessment & Plan: optimize meds. needs to be on ARB. will get him started on losartan and maximize it. sodium restriction to 2 g per day. (4) Anemia in CKD (chronic kidney disease) Assessment & Plan: epogen with dialysis as needed to keep the hb less than 10.5. replace iron if necessary via iv based on the iron saturation (5) MARIAM (acute kidney injury) Assessment & Plan: dialysis dependent. hd orders for tomorrow have been placed. Sepsis Screening Skin Color: Normal ALYSSA CUI MD Jun 14, 2025 08:06
--- NOTE | 2025-06-14 10:56 | RADIOLOGY REPORT ---
ABDOMINAL RADIOGRAPH Indication: stool burden load eval Technique: Two frontal upright views of the abdomen were obtained. Comparison: CT CT ABDOMEN PELVIS on DOS: 06/11/25. FINDINGS: Lines and tubes: None. There is a nonobstructive bowel gas pattern. Stool throughout the colon. No pneumoperitoneum. Bony structures unremarkable. IMPRESSION: 1. Stool throughout the colon.
--- NOTE | 2025-06-14 17:33 | PROGRESS NOTE ---
Daily Progress Note Providers to CC ~ Antibiotic Timeout Antibiotic Ordered?: No Objective Vital Signs Date Time Temp Pulse Resp B/P (MAP) Pulse Ox O2 Delivery O2 Flow Rate FiO2 06/14/25 16:33 71 06/14/25 16:32 128/67 (87) 06/14/25 15:45 18 Room Air 0.0 06/14/25 15:40 92 21 06/14/25 06:00 98.9 Result Diagram: 06/14/25 0644 06/14/25 06 Gen. 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 Isabel condemnation engineer is arranging for dialysis Monitor daily metabolic panels 06/11 received 2nd treatment of dialysis today 06/12 received 3rd dialysis treatment today # hyperkalemia Resolved with reversible measures and on Kayexalate Continue monitor daily labs # severe protein calorie malnutrition present on admission Registered dietitian will be evaluating the patient # hypertension Monitor blood pressure Q shift Due to hyperkalemia lisinopril is contraindicated Continue amlodipine and clonidine patch # left cephalic vein occlusive thrombosis DC IV on the left upper extremity # constipation Continue Colace Scheduled lactulose Nightly Metamucil PRN suppository PRN mineral oil enema No documented bowel movement as of yet # DVT prophylaxis SQ heparin Disposition: Discharge home anticipate tomorrow morning 06/15/2025- once chair time at [place] dialysis is scheduled. Sepsis Screening Skin Color: Normal Date of Service: Jun 14, 2025 Billing Provider: DARIN ACOSTA DO Common Visit Codes: [id number] INP/OBS CARE(HIGH) DARIN ACOSTA DO Jun 14, 2025 17:33
[2025-06-15] VITALS (20 sets, daily range): BP systolic 112–152; BP diastolic 53–88; PULSE 65–92; RESP 15–20; TEMP 97.3–98.9; O2SAT 93–98
[2025-06-15 06:00] LABS: MEAN PLATELET VOLUME 7.6 FL (7.4-10.4); RED CELL DISTRIBUTION WIDTH 13.2 % (11.5-14.5)
[2025-06-15 06:02] LABS: CREATININE 8.08 MG/DL (0.60-1.10); PHOSPHORUS 7.9 MG/DL (2.3-4.5); TOTAL CARBON DIOXIDE 26.5 MMOL/L (24-32); eCRCL 14 ML/MIN; eGFR 7 ML/MIN
[2025-06-15] MEDS ORDERED: albumin (human) 25% 100ml IV 100 ML IV PRN (08:00)
[2025-06-15] MEDS: heparin 1,000 units/ml 10ml inj IV ONE (09:16)
[2025-06-15] MEDS: heparin 1,000 units/ml 10ml inj HE ONE ×2 (09:17→09:18)
[2025-06-15] MEDS: heparin 1,000unit/ml 10ml vial 10 ML IV ONE (09:17)
--- NOTE | 2025-06-15 10:15 | PROGRESS NOTE ---
Progress Note Dictate Providers to CC ~ Central Line/PICC still needed: Yes Central Line/PICC Necessity: Req HD/Plasmapheresis [place] Indications Met/Not Met: F/C Indications Not Met Antibiotic Ordered?: N/A Subjective Subjective 4 days of constipation. Abdominal Xray showed full of stools in the colon. on Lactulose. ESRD - due for HD today. Membranous nephropathy with LEATHA 2R positive. primary. needs outpatient placement for dialysis in [place]. Hopefully the paperworks went through and he can be discharged later today, provided, constipation is out of the equation. Objective Vitals Vital Signs Date Time Temp Pulse Resp B/P (MAP) Pulse Ox O2 Delivery O2 Flow Rate FiO2 06/15/25 10:00 72 16 119/63 (81) 96 Room Air 06/15/25 08:30 98.5 06/15/25 07:56 0.0 06/15/25 07:49 21 Lab Results: 06/15/25 0459 06/15/25 0459 Objective Vital Signs: As above General: Normal body habitus, no acute distress. Skin: No rashes, lumps, ulcers, blisters, purpura or petechiae HEENT: Anicteric sclera, HANH Neck: Supple and nontender without enlargement of the thyroid, or lymphadenopathy. Chest: Normal size and shape, no tenderness, CTA bilaterally Heart: Regular. No jugular venous distention, S1 and S2 heard , no gallop Abdomen: Soft and non tender no organomegaly,BS+ Extremities: No pedal edema Neuro: Nonfocal. Advance Care Planning Advanced Care plannin - 30 Minutes Problem\Assessment\Plan Problems/Diagnosis: (1) ESRD (end stage renal disease) Assessment & Plan: HD again today... outpt referral in progress. hopefully once we get a chair time, we can plan his discharge. Meanwhile, he got moved to non telemetry floor.. 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 Now he has advanced kidney disease and treating at this stage with cytoxan is not going to alter the course and the side effects of cytoxan can be prohibitive to use him at this time. will proceed with dialysis as soon as can get me a TDC placed. will start pacing him for outpatient dialysis in [place] [facility] three times a week. renal diet strictly. renal dietitian consult. hypertension neeeds to be in absolute control. I have explained all these. I certainly hope and pray he remains compliant. i have spoken to Facility admin of [place] dialysis (3) Accelerated hypertension Assessment & Plan: optimize meds. needs to be on ARB. will get him started on losartan and maximize it. sodium restriction to 2 g per day. (4) Anemia in CKD (chronic kidney disease) Assessment & Plan: epogen with dialysis as needed to keep the hb less than 10.5. on VEnofer. we have stopped it with today's dose. (5) MARIAM (acute kidney injury) Assessment & Plan: dialysis dependent. hd orders placed for today. Sepsis Screening Skin Color: Normal ALYSSA CUI MD Jun 15, 2025 10:15
--- NOTE | 2025-06-15 11:51 | PROGRESS NOTE ---
Daily Progress Note Providers to CC ~ Antibiotic Timeout Antibiotic Ordered?: No Subjective Patient is on dialysis. Complains of having cramps every where. Objective Vital Signs Date Time Temp Pulse Resp B/P (MAP) Pulse Ox O2 Delivery O2 Flow Rate FiO2 06/15/25 11:30 77 16 122/66 (84) 97 Room Air 06/15/25 08:30 98.5 06/15/25 07:56 0.0 06/15/25 07:49 21 Result Diagram: 06/15/259 06/15/25458 Awake cooperative in no acute distress HEENT normocephalic atraumatic Neck supple Chest clear to auscultation, no wheezes crackles rhonchi Heart: Regular rate rhythm, no murmur gallop rub Abdomen is soft, tender in epigastrium Extremities no cyanosis clubbing or edema Neuro exam nonfocal. 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 for consult with Nephrology secondary to acute renal failure failure with a an increased creatinine of 7.26 in elevated BUN. 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 Supplements per their recommendation. # hypertension Continue monitor. Due to hyperkalemia lisinopril is contraindicated Continue amlodipine and clonidine patch # left cephalic vein occlusive thrombosis DC IV on the left upper extremity # constipation Bowel care protocol. # DVT prophylaxis SQ heparin Disposition: Discharge home once chair time at [place] dialysis is scheduled. Sepsis Screening Skin Color: Normal Date of Service: Jun 15, 2025 Billing Provider: CAROLYN DERAS MD Common Visit Codes: [id number] INP/OBS CARE(HIGH) CAROLYN DERAS MD Jun 15, 2025 11:51
[2025-06-15] MEDS ORDERED: diazepam 2mg tablet PO PRN (14:50)
--- NOTE | 2025-06-15 21:51 | RADIOLOGY REPORT ---
EXAM: DI CHEST,SINGLE VIEW HISTORY: COUGH TECHNIQUE: 1 view of the chest COMPARISON: DI CHEST,SINGLE VIEW on DOS: 06/10/25 FINDINGS/IMPRESSION: LUNGS: Trace left-sided pleural effusion. Slight elevation left hemidiaphragm. Peribronchial thickening, which is nonspecific however may represent infectious versus inflammatory bronchitis. MEDIASTINUM: Unremarkable. BONES: No acute osseous abnormality. OTHER: Right-sided dual-lumen dialysis catheter with distal tip of the superior vena cava
[2025-06-15] MEDS: diazepam 2mg tablet PO PRN (22:21)
[2025-06-16] VITALS (11 sets, daily range): BP systolic 93–150; BP diastolic 48–81; PULSE 60–82; RESP 15–18; TEMP 98–98.7; O2SAT 93–98
[2025-06-16 05:52] LABS: PHOSPHORUS 6.9 MG/DL (2.3-4.5)
--- NOTE | 2025-06-16 09:35 | PROGRESS NOTE- Residence ---
Progress Note - Resident Providers to CC Resident Creating Document: SANG EDMONDS, RICARDO ~ Antibiotic Timeout Antibiotic Ordered?: No Subjective seen and examined the patient at bed side, He underwent 4 HD during hospital course, today his creatinine is 8.08, Objective Vital Signs Date Time Temp Pulse Resp B/P (MAP) Pulse Ox O2 Delivery O2 Flow Rate FiO2 06/16/25 08:09 74 18 96 Room Air* 0 21 06/16/25 06:00 98.3 123/66 (85) Result Diagram: 06/15/25 0459 06/15/25 0459 Advance Care Planning Advanced Care plannin - 30 Minutes Assessment Assessment DC delayed by dumb xray reading of "TB can't be r/o'd" PPD and gold quantiferon ordered, as well as next HD tomorrow. Pt is very anxious to get home. Date of Service: Jun 16, 2025 Billing Provider: SANG WALKER RES Jun 16, 2025 09:35 RAMO MATUTE MD Jun 16, 2025 19:15
--- NOTE | 2025-06-16 12:40 | RADIOLOGY REPORT ---
CHEST RADIOGRAPH Indication: TB clearance for dialysis, Please state explicitly no evidence of TB found Technique: Single frontal view of the chest was obtained Comparison: DI CHEST,SINGLE VIEW on DOS: 06/15/25, DI CHEST,SINGLE VIEW on DOS: 06/10/25, DI CHEST,SINGLE VIEW on DOS: 06/09/25, CHEST,SINGLE VIEW on DOS: 01/28/22, CHEST,SINGLE VIEW on DOS: 12/16/21 FINDINGS: Lines and Tubes: Tunneled right hemodialysis catheter tip in the SVC Lungs: No focal consolidation. Pleura: No effusion. No pneumothorax. Cardiomediastinal contours: Unremarkable Bones: No acute osseous abnormality. IMPRESSION: No acute cardiopulmonary disease.
--- NOTE | 2025-06-16 13:59 | PROGRESS NOTE ---
Daily Progress Note Providers to CC ~ Antibiotic Timeout Antibiotic Ordered?: No Subjective Patient has no new complaints, he is seen resting comfortably. Objective Vital Signs Date Time Temp Pulse Resp B/P (MAP) Pulse Ox O2 Delivery O2 Flow Rate FiO2 06/16/25 10:45 79 06/16/25 10:00 98.0 18 150/81 (104) 95 Room Air 06/16/25 08:09 0 21 Result Diagram: 06/15/25 0459 06/15/25 0459 Awake cooperative in no acute distress HEENT normocephalic atraumatic Neck supple Chest clear to auscultation, no wheezes crackles rhonchi Heart: Regular rate rhythm, no murmur gallop rub Abdomen is soft, tender in epigastrium Extremities no cyanosis clubbing or edema Neuro exam nonfocal. 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 Start Permethrin # Hyperkalemia Resolved with reversible measures and on Kayexalate # severe protein calorie malnutrition present on admission RD evaluated the patient. Supplements per their recommendation. # hypertension Continue monitor. Due to hyperkalemia lisinopril is contraindicated Continue amlodipine and clonidine patch # left cephalic vein occlusive thrombosis DC IV on the left upper extremity # constipation Bowel care protocol. # DVT prophylaxis SQ heparin Disposition: Discharge home once chair time at [place] dialysis is scheduled. Sepsis Screening Skin Color: Normal Date of Service: Jun 16, 2025 Billing Provider: CAROLYN DERAS MD Common Visit Codes: [id number] INP/OBS CARE(MOD) CAROLYN DERAS MD Jun 16, 2025 13:59
[2025-06-16] MEDS: Permethrin 1% 59ml topical rinse TP ONE (15:40)
[2025-06-16] MEDS: tuberculin, purif. prot. deriv. 5 units/0.1ml ID ONE (19:00)
[2025-06-17] VITALS (14 sets, daily range): BP systolic 113–155; BP diastolic 55–95; PULSE 56–79; RESP 15–20; TEMP 97.6–98; O2SAT 94–98
[2025-06-17] MEDS: heparin 1,000 units/ml 10ml inj IV ONE (10:28)
[2025-06-17] MEDS: heparin 1,000unit/ml 10ml vial 10 ML IV ONE (10:28)
[2025-06-17] MEDS: heparin 1,000 units/ml 10ml inj HE ONE ×2 (10:29→11:14)
[2025-06-17] MEDS: tuberculin, purif. prot. deriv. 5 units/0.1ml ID ONE (10:48)
[2025-06-17] MEDS ORDERED: NOR5T PO (11:00)
[2025-06-17] MEDS ORDERED: LABE100T8 PO (11:00)
[2025-06-17] MEDS ORDERED: HYDR25TA90 PO (11:00)
[2025-06-17] MEDS ORDERED: CLON1PAT15 TD (11:00)
--- NOTE | 2025-06-17 11:17 | DISCHARGE SUMMARY ---
Discharge Summary Providers to CC ~ Discharge Summary Admission Diagnosis: acute renal failure Hospital Course DATE OF ADMISSION: 06/09/2025 DATE OF DISCHARGE:06/17/2025 Discharge Diagnosis\Comment: MARIAM Hyperkalemia HTN Operations\Procedures: Echocardiogram Abdomen/pelvis CT Renal ultrasound Vascular ultrasound Consultants: Nephrology Dr. Coleman Cardiology Dr. Farooq Complications: None Condition on DC: Stable New Medications: Amlodipine Besylate (Amlodipine Besylate) 5 Mg Tablet 10 MG PO DAILY for 30 Days, #30 TAB Clonidine (Clonidine) 0.2 Mg/24 Hour Patch.tdwk 1 PATCH TD Q7D for 30 Days, #4 PATCH Hydralazine Hcl* (Apresoline*) 25 Mg Tablet 25 MG PO Q8H for 30 Days, #90 TAB Labetalol Hcl (Labetalol Hcl) 100 Mg Tablet 300 MG PO TID for 30 Days, #90 TAB Continued Medications: Albuterol Sulfate (Albuterol Sulfate) 2.5 Mg/3 Ml (0.083 %) Vial.neb 3 ML NEB Q4H PRN for SOB or wheezing Albuterol Sulfate/Budesonide (Airsupra 90-80 Mcg Inhaler) 90 Mcg-80 Mcg/Actuation Hfa.aer.ad 2 PUFFS INH PRN for SOB or wheezing Apixaban (Eliquis) 5 Mg Tablet 1 TAB PO BID for blood clot Atorvastatin Calcium (Atorvastatin Calcium) 40 Mg Tablet 1 TAB PO HS Furosemide (Furosemide) 20 Mg Tablet 1 TAB PO DAILY Pantoprazole Sodium (Pantoprazole Sodium) 40 Mg Tablet.dr 1 TAB PO BID Potassium Chloride (Klor-Con 8) 8 Meq Tablet.er 1 TAB PO DAILY, TAB 0 Refills Sodium Bicarbonate (Antacid) 650 Mg Tablet 1 TAB PO TID for indigestion, TAB 0 Refills Tiotropium Mark (Spiriva) 18 Mcg Cap.w.dev 1 CAP INH DAILY, CAP 0 Refills Discontinued Medications: Lisinopril (Lisinopril) 20 Mg Tablet 1 TAB PO DAILY for 30 Days, #30 TAB Discharge Summary: Reason for admission: 40 years old male with a history of CKD, transferred from [facility] for nephrology consultation secondary to acute on chronic kidney disease with an increased creatinine of 7.26. Height Please refer to admission H&P for more details. Hospital course: Patient was admitted on the monitored floor and the hospital course is as follows. # end-stage renal disease secondary to membranous nephropathy determined by biopsy: Dr. Isabel was consulted. Patient is started on dialysis. # head lice: Treated with permethrin # hyperkalemia: Resolved . Treated with Kayexalate # hypertension: Medications optimized. # left cephalic vein occlusive thrombosis: IV in the left upper extremity discontinued. # anemia in CKD: H&H was monitored and remained stable. Discharge exam: I examined the patient on the day of discharge. Gen. awake alert oriented asymptomatic HEENT: Normocephalic, atraumatic, extraocular movements are intact, sclera anicteric, conjunctiva pinkish, moist oral mucosa, no rash or ulcers. NECK: Supple, no JVD, trachea midline. CHEST: Clear to auscultation, no wheezes crackles or rhonchi. TDC on right side of the chest HEART: Regular rate rhythm, no murmur gallop or rub. ABDOMEN: Soft, nontender, no organomegaly. EXTREMITIES: No cyanosis clubbing or edema. NEURO EXAM: Grossly nonfocal. MUSCULOSKELETAL : No joint swelling or deformities. SKIN: No rash or ulcers noted. 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
--- NOTE | 2025-06-17 11:55 | PROGRESS NOTE- Residence ---
Progress Note - Resident Providers to CC Resident Creating Document: SANG EDMONDS RES ~ Antibiotic Timeout Antibiotic Ordered?: No Subjective Patient seen and examined at bedside. Patient has undergone four sessions of hemodialysis during current hospitalization. Latest serum creatinine: 8.08 mg/dL. Known diagnosis of membranous nephropathy, PLA2R antibody positive, consistent with primary membranous nephropathy. Patient remains very anxious to be discharged home. Chest X-ray findings suspicious for tuberculosis; both PPD skin test and QuantiFERON-TB Gold were ordered. Patient initially refused testing yesterday, but was counseled today and agreed to proceed Patient is scheduled for hemodialysis today. Dialysis chair has been arranged for the patient in outpatient for future dialysis in [place] Objective Vital Signs Date Time Temp Pulse Resp B/P (MAP) Pulse Ox O2 Delivery O2 Flow Rate FiO2 06/17/25 11:10 69 18 115/62 (79) 98 Room Air 06/17/25 10:10 98.0 06/17/25 02:38 0.0 06/17/25 02:32 21 Result Diagram: 06/15/25 0459 06/15/25 0459 GENERAL: Awake, alert, oriented. No acute distress HEENT : Normocephalic, atraumatic, pupils equal and reactive to light, extraocular movements intact, NECK: neck is supple, trachea midline, no lymphadenopathy, no thyromegaly, no JV distention RESPIRATORY: Chest expansion equal bilaterally, Mildly diminished breath sounds Bilaterally , no wheezes, or rhonchi. No use of accessory muscles, no tenderness on palpation., TDC in place CARDIOVASCULAR: S1 and S2 heard, no murmurs, no rubs, or gallops ABDOMEN: Soft, nontender, nondistended, bowel sounds present and normoactive. No organomegaly, no palpable mass, no rebound or guarding NEUROLOGICAL: Alert, oriented, normal memory, speech is normal Cranial nerves II-XII- intact Motor strength 5/5 Sensation-intact in all extremities Reflexes +2 and symmetrical Coordination is intact EXTREMITIES: no Edema, peripheral pulses felt ,no deformities Psychiatric:Appropriate mood and affect,No hallucinations or suicidal ideation Advance Care Planning Advanced Care plannin - 30 Minutes Assessment Assessment End stage renal disease Abdomen is nephropathy determined by the biopsy MARIAM Accelerated hypertension Known diagnosis of membranous nephropathy, PLA2R antibody positive, consistent with primary membranous nephropathy. Patient remains very anxious to be discharged home. Chest X-ray findings suspicious for tuberculosis; both PPD skin test and QuantiFERON-TB Gold were ordered. Patient initially refused testing yesterday, but was counseled today and agreed to proceed Patient is scheduled for hemodialysis today. Dialysis chair has been arranged for the patient in outpatient for future dialysis in [place] Disposition: Patient will be discharged today Sang Edmonds PGY1-Internal Medicine Resident Plan Plan Víctor is clearly a terrible HD client. He's refused the exact tests he needs to be approved for PO.HD. We'll soldier on, hoping he catches on to the importance of comliance. Can't get placement until gold quantiferon, ppd (which he's refused) and cleared CXR/ Date of Service: Jun 17, 2025 Billing Provider: RAMO MATUTE MD, SATISH, RES Jun 17, 2025 11:55 RAMO MATUTE MD Jun 17, 2025 18:53
[2025-06-18] VITALS (12 sets, daily range): BP systolic 105–128; BP diastolic 44–66; PULSE 63–75; RESP 15–18; TEMP 97.6–97.8; O2SAT 96–100
[2025-06-18] MEDS: tuberculin, purif. prot. deriv. 5 units/0.1ml ID ONE (11:58)
--- NOTE | 2025-06-18 12:03 | PROGRESS NOTE- Residence ---
Progress Note - Resident Providers to CC Resident Creating Document: SANG EDMONDS RES ~ Antibiotic Timeout Antibiotic Ordered?: No Subjective Patient seen and examined at bedside. Patient has undergone four sessions of hemodialysis during current hospitalization. Latest serum creatinine: 8.08 mg/dL. Known diagnosis of membranous nephropathy, PLA2R antibody positive, consistent with primary membranous nephropathy. Patient remains very anxious to be discharged home. Chest X-ray findings suspicious for tuberculosis; both PPD skin test and QuantiFERON-TB Gold were ordered. Patient underwent HD yesterday and his next session is on Sunday, Patient will be in hospital till sunday, if his PPD skin test is negative then he can discharge on sunday and can undergo dialysis out patient in [place]. Patient will undergo HD on sunday at [place] [facility] center if his ppd is negative Objective Vital Signs Date Time Temp Pulse Resp B/P (MAP) Pulse Ox O2 Delivery O2 Flow Rate FiO2 06/18/25 10:00 97.8 65 16 105/51 (69) 97 Room Air 06/18/25 08:25 0.0 06/18/25 08:20 21 Result Diagram: 06/15/25 0459 06/15/25 0459 GENERAL: Awake, alert, oriented. No acute distress HEENT : Normocephalic, atraumatic, pupils equal and reactive to light, extraocular movements intact, NECK: neck is supple, trachea midline, no lymphadenopathy, no thyromegaly, no JV distention RESPIRATORY: Chest expansion equal bilaterally, Mildly diminished breath sounds Bilaterally , no wheezes, or rhonchi. No use of accessory muscles, no tenderness on palpation., TDC in place CARDIOVASCULAR: S1 and S2 heard, no murmurs, no rubs, or gallops ABDOMEN: Soft, nontender, nondistended, bowel sounds present and normoactive. No organomegaly, no palpable mass, no rebound or guarding NEUROLOGICAL: Alert, oriented, normal memory, speech is normal Cranial nerves II-XII- intact Motor strength 5/5 Sensation-intact in all extremities Reflexes +2 and symmetrical Coordination is intact EXTREMITIES: no Edema, peripheral pulses felt ,no deformities Psychiatric:Appropriate mood and affect,No hallucinations or suicidal ideation HEART Score I've given orders to Claude CAMPOS. As soon as PPD read negative, they accept him for Sunday HD. HD ordered for Sunday, pt's initial refusal of PPD and threat to leave AMA tony ill for his survival on OP.HD Advance Care Planning Advanced Care plannin - 30 Minutes Assessment Assessment End stage renal disease Abdomen is nephropathy determined by the biopsy MARIAM Accelerated hypertension Known diagnosis of membranous nephropathy, PLA2R antibody positive, consistent with primary membranous nephropathy. Patient remains very anxious to be discharged home. Chest X-ray findings suspicious for tuberculosis; both PPD skin test and QuantiFERON-TB Gold were ordered. Patient underwent HD yesterday and his next session is on Sunday, Patient will be in hospital till sunday, if his PPD skin test is negative then he can discharge on Sunday and can undergo dialysis out patient in [place]. Patient will undergo HD on Sunday at [place] [facility] if his ppd is negative Disposition: Patient will be discharged today Sang Edmonds PGY1-Internal Medicine Resident Date of Service: Jun 18, 2025 Billing Provider: RAMO MATUTE MD, SATISH, RICARDO Jun 18, 2025 12:03 RAMO MATUTE MD Jun 18, 2025 18:42
[2025-06-18 13:12] LABS: MEAN PLATELET VOLUME 7.4 FL (7.4-10.4); RED CELL DISTRIBUTION WIDTH 13.3 % (11.5-14.5)
[2025-06-18 13:25] LABS: CREATININE 7.43 MG/DL (0.60-1.10); TOTAL CARBON DIOXIDE 27.4 MMOL/L (24-32); eCRCL 16 ML/MIN; eGFR 8 ML/MIN
[2025-06-19] VITALS (20 sets, daily range): BP systolic 112–144; BP diastolic 51–89; PULSE 63–85; RESP 14–19; TEMP 97.8–98.6; O2SAT 96–100
[2025-06-19 06:59] LABS: MEAN PLATELET VOLUME 7.3 FL (7.4-10.4); RED CELL DISTRIBUTION WIDTH 13.1 % (11.5-14.5)
[2025-06-19 07:40] LABS: CREATININE 8.13 MG/DL (0.60-1.10); TOTAL CARBON DIOXIDE 20.7 MMOL/L (24-32); eCRCL 14 ML/MIN; eGFR 7 ML/MIN
--- NOTE | 2025-06-19 09:31 | PROGRESS NOTE- Residence ---
Progress Note - Resident Providers to CC Resident Creating Document: SANG EDMONDS RES ~ Antibiotic Timeout Antibiotic Ordered?: No Subjective Patient seen and examined at bedside. Latest serum creatinine: 8.13 mg/dL. Known diagnosis of membranous nephropathy, PLA2R antibody positive, consistent with primary membranous nephropathy. The patient's initial chest X-ray is suspicious for tuberculosis . Therefore, we will defer discharge until the result of the PPD skin test is available,. The patient is scheduled to undergo hemodialysis today. If the PPD test returns negative, the patient will be cleared for discharge. Upon discharge, the patient is advised to follow up with the [facility]. Outpatient dialysis is scheduled for Sunday at 2:00 PM. Objective Vital Signs Date Time Temp Pulse Resp B/P (MAP) Pulse Ox O2 Delivery O2 Flow Rate FiO2 06/19/25 09:04 71 06/19/25 08:47 18 Room Air 0.0 06/19/25 08:36 99 21 06/19/25 06:00 97.8 144/89 (107) Result Diagram: 06/19/25 0610 06/19/25 0610 GENERAL: Awake, alert, oriented. No acute distress HEENT : Normocephalic, atraumatic, pupils equal and reactive to light, extraocular movements intact, NECK: neck is supple, trachea midline, no lymphadenopathy, no thyromegaly, no JV distention RESPIRATORY: Chest expansion equal bilaterally, Mildly diminished breath sounds Bilaterally , no wheezes, or rhonchi. No use of accessory muscles, no tenderness on palpation., TDC in place CARDIOVASCULAR: S1 and S2 heard, no murmurs, no rubs, or gallops ABDOMEN: Soft, nontender, nondistended, bowel sounds present and normoactive. No organomegaly, no palpable mass, no rebound or guarding NEUROLOGICAL: Alert, oriented, normal memory, speech is normal Cranial nerves II-XII- intact Motor strength 5/5 Sensation-intact in all extremities Reflexes +2 and symmetrical Coordination is intact EXTREMITIES: no Edema, peripheral pulses felt ,no deformities Psychiatric:Appropriate mood and affect,No hallucinations or suicidal ideation Advance Care Planning Advanced Care plannin - 30 Minutes Assessment Assessment End stage renal disease Abdomen is nephropathy determined by the biopsy MARIAM Accelerated hypertension Known diagnosis of membranous nephropathy, PLA2R antibody positive, consistent with primary membranous nephropathy. Electrolyes are normal, BUN-62, Creatinine 8.13, The patient's initial chest X-ray is suspicious for tuberculosis . Therefore, we will defer discharge until the result of the PPD skin test is available,. The patient is scheduled to undergo hemodialysis today. If the PPD test returns negative, the patient will be cleared for discharge. Upon discharge, the patient is advised to follow up with the [facility]. Outpatient dialysis is scheduled for Sunday at 2:00 PM. Sang Edmonds PGY1-Internal Medicine Resident Plan Plan PPD negative so far. Up and about. Orders given to Claude CAMPOS for Sunday HD 2PM if PPD negative tomorrow. I'll read it. Date of Service: Jun 19, 2025 Billing Provider: RAMO MATUTE MD, SATISH, RES Jun 19, 2025 09:31 RAMO MATUTE MD Jun 19, 2025 14:20
[2025-06-19] MEDS: heparin 1,000unit/ml 10ml vial 10 ML IV ONE (12:13)
[2025-06-19] MEDS: heparin 1,000 units/ml 10ml inj IV ONE (12:14)
[2025-06-19] MEDS: heparin 1,000 units/ml 10ml inj HE ONE ×2 (12:14→12:15)
[2025-06-20] VITALS (7 sets, daily range): BP systolic 114–118; BP diastolic 61–67; PULSE 57–73; RESP 14–16; TEMP 97.6–98; O2SAT 96–99
[2025-06-20 06:03] LABS: MEAN PLATELET VOLUME 7.5 FL (7.4-10.4); RED CELL DISTRIBUTION WIDTH 13.4 % (11.5-14.5)
[2025-06-20 06:42] LABS: CREATININE 6.43 MG/DL (0.60-1.10); TOTAL CARBON DIOXIDE 25.3 MMOL/L (24-32); eCRCL 18 ML/MIN; eGFR 10 ML/MIN
--- NOTE | 2025-06-20 10:51 | RADIOLOGY REPORT ---
Procedure: CT CT CHEST Reason for study/Clinical History: TB Comparison Study: Chest x-ray done 06/16/2025 Exam Date: 06/20/2025 10:37 AM TECHNIQUE: Multidetector CT of the chest was performed from the lung apices to the upper abdomen without the use of intravenous contract. Axial, coronal and sagittal multiplanar reformats were performed. Radiation Dose Information: CT Dose: CTDI volume is 18.3 mGy. Dose-length product is 690 mGy*cm The dose indicators for CT are the volume Computed Tomography (CT) Dose Index (CTDIvol) and the Dose Length Product (DLP), and are measured in units of mGy and mGy-cm, respectively. These indicators are not patient dose, but values generated from the CT scanner acquisition factors. The report includes radiation exposure data for exposures received during this examination. FINDINGS: Lower neck: Normal thyroid. Lungs: No focal consolidation, pleural effusion or pneumothorax. There is parenchymal stranding in the left lung base most likely due to scar associated with slight pleural thickening. There is bilateral perihilar bronchial wall thickening slightly greater on the right than the left. Heart/Vascular Structures: Normal heart size. No pericardial effusion. Central line is present in the superior vena cava. Lymph Nodes: Small mediastinal nodes. Pleura: No pleural effusion or significant pneumothorax. Musculoskeletal: No acute osseous abnormality. Soft tissues: Normal. Upper abdomen: Limited portions of the upper abdomen are unremarkable. IMPRESSION: 1. No evidence of TB or other acute cardiopulmonary pathology. 2. Atelectasis or scarring in the left lung base 3. Mild bilateral perihilar bronchitic changes Radiation optimization: All CT scans at this facility use at least one of these dose optimization techniques: automated exposure control mA and/or kV adjustment per patient size (includes targeted exams where dose is matched to clinical indication) or iterative reconstruction.
--- NOTE | 2025-06-20 13:10 | PROGRESS NOTE ---
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 He is stable post-initiation of HD, euvolemic, with a right IJ tunneled catheter, and scheduled for outpatient MWF dialysis. Comorbidities include hypertension, secondary hyperparathyroidism, anemia of CKD, and hypoalbuminemia. Awaiting PPD for TB screening due to abnormal chest x- ray (no evidence of active TB on CT). Objective Vitals Vital Signs Date Time Temp Pulse Resp B/P (MAP) Pulse Ox O2 Delivery O2 Flow Rate FiO2 06/20/25 10:00 98.0 73 16 114/61 (78) 99 Room Air 06/20/25 08:16 0.0 06/20/25 08:07 21 Alert, appears comfortable ERRR w/o murmur, no JVD CTAB, no wheezes +BS, NT No edema Lab Results: 06/20/25 0522 06/20/25 0522 Other Results I & O 06/20/25 07:00 Intake Total 2500 ml Output Total 2500 ml Balance 0 ml Intake Oral 2000 ml Hemodialysis 500 ml Hemodialysis 2500 ml # Voids 7 # Bowel Movements 1 Problem\Assessment\Plan Additional Plan 1. ESRD on Hemodialysis Continue MWF HD schedule; confirm outpatient slot (Sunday 2 PM, [place]). Maintain right IJ tunneled catheter; refer for AV fistula evaluation for permanent access if indicated. Monitor volume status, labs (electrolytes, calcium, phosphorus, PTH, albumin, hemoglobin, iron studies routinely). Reinforce dietary/fluid restrictions, medication adherence, and catheter infection precautions. Ensure vaccinations are up to date (Hep B, influenza, pneumococcal, COVID-19). 2. Hypertension Continue labetalol, clonidine patch, hydralazine. Monitor BP pre- and post-dialysis; adjust antihypertensives as needed. 3. Secondary Hyperparathyroidism/CKD-MBD Start dietary phosphate restriction and non-calcium phosphate binder (e.g., sevelamer). Calculate corrected calcium; supplement if persistently low. Check 25(OH) vitamin D; supplement if deficient. Consider calcitriol or cinacalcet if PTH remains elevated. 4. Anemia of CKD Start IV iron supplementation (TSAT 15%, iron 40, TIBC 263). Consider GIULIA if hemoglobin <10 and after iron repletion. Monitor for other causes if anemia worsens. 5. Abnormal Chest X-ray/PPD Pending Await PPD result before discharge. If positive, consult ID; if negative and no clinical/CT evidence of TB, ok to discharge. 6. Hypoalbuminemia Likely multifactorial (nephrotic syndrome, malnutrition, inflammation). Refer to dietitian for renal-appropriate, protein-adequate diet. Sepsis Screening Skin Color: Normal WALL,ENA M III DO Jun 20, 2025 13:10
--- NOTE | 2025-06-20 18:44 | DISCHARGE SUMMARY ---
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 on dialysis now Status post dialysis catheter insertion Hypertension uncontrolled History of blood clots in the past Chronic marijuana user Chronic anxiety Chronic CHF ejection fraction preserved Hospital Course DATE OF ADMISSION: June 09, 2025 DATE OF DISCHARGE: June 20, 2025 Discharge Diagnosis\Comment: Acute renal failure 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 on dialysis now Status post dialysis catheter insertion Hypertension uncontrolled History of blood clots in the past Chronic marijuana user Chronic anxiety Chronic CHF ejection fraction preserved Operations\Procedures: Dialysis catheter insertion Consultants: It Support Manager, merchandising execution manager, ICU Complications: Non Condition on DC: Stable Discharge Summary: This 40-year-old male patient with a history of kidney disease was transferred here from [facility] for consult with Nephrology secondary to acute renal failure failure with a an increased creatinine of 7.26 in elevated BUN. Patient went to [facility] for shortness of breaths. He mentioned he has history of blood clot almost 1-1/2 years back diagnosed in [facility]. Patient does have a history of hypertension and has been noncompliant with his medications off and on . he is only taking lisinopril and clonidine currently . Clonidine he is taking for anxiety as per his medication bottle.Patient is current smoker one pack last three days for him. He use cannabis at night. Denied use of any alcohol use. He states he was seen by Dr. Dotson in past but then his merchandising execution manager . Patient is currently asymptomatic except for elevated blood pressure. Hospitalist services contacted for admission and further management. No other symptoms . To admission patient was extensively evaluated treated including started on hemodialysis, secondary to end-stage renal disease, today he is feeling better cleared for discharge by merchandising execution manager, scheduled for hemodialysis, medication reconciled, today on physical exam Vital signs, stable ,afebrile. Pulse Oximetry reflects adequate oxygenation. General: well developed, well nourished. Awake , alert, and oriented x4, resting comfortably in the bed, in no acute distress . Skin: Warm, dry, no pallor, no rash or petechiae. HEENT: Atraumatic, normocephalic, EOMI, anicteric sclera B; pink conjunctiva; PERRLA, normal oropharynx, moist oral and nasal mucosa. Tympanic membrane , nose , throat clear. Neck: Trachea midline. Supple, full range of motion, no JVD, bruit , hepatojugular reflex , lymphadenopathy or masses, or other lesions Cardiac: Regular rhythm, regular rate no murmurs, rubs, or gallops. Normal S1 and S2, no S3 noticed. PMI is normal. Respiratory: Equal breath sounds bilaterally, no tachypnea; lungs clear to auscultation bilaterally, no wheezing ,rub or rales, or crackles. Chest wall is symmetric and without deformity. No signs of trauma. Chest wall is nontender. No signs of respiratory distress. Resonance is normal upon percussion bilaterally. Gastrointestinal: Abdomen symmetric, non-distended, soft, non-tender, normal bowel sounds x4 quadrant, normoactive, no hepatosplenomegaly , no masses , no bruit, no flank pain bilaterally. No voluntary guarding, rebound, or rigidity. No tenderness to percussion. No pulsatile masses. Equal femoral pulses. No Miller's sign or McBurney point tenderness. Back; no CVA tenderness bilaterally, no deformities. Neck and back are without deformity as well. No tenderness noted on palpation of the spinous processes. Spinous processes are midline. Cervical, thoracic, and lumbar paraspinal muscles are not tender and are without spasm. : normal external genitalia, without lesions, swelling, masses or tenderness. Musculoskeletal: Extremities, normal range of motion, non-tender, muscle strength 5/5 x 4. Negative Homans signs bilaterally on lower extremity. Distal pulses full symmetrical, no clubbing, cyanosis , edema. Neurological: Speech is clear, alert, and oriented x 4. No motor or sensory deficit, deep tendon reflexes normal, cerebellar intact. Cranial nerves II-XII intact. Psych: Alert and or appropriate, normal affect. Vascular: Good distal pulses, which are equal x4; capillary refill less than 2 seconds. Lymphatic, no lymphadenopathy. *Problems/Diagnosis: (1) ESRD (end stage renal disease) (2) Membranous nephropathy determined by biopsy (3) Accelerated hypertension (4) Anemia in CKD (chronic kidney disease) (5) MARIAM (acute kidney injury) Status: Acute Total Time Spent on D/C: > 30 Minutes Date of Service: Jun 20, 2025 Billing Provider: KESHA MALDONADO MD Common Visit Codes: 75674-YBJ/OBS DAY >30min KESHA MALDONADO MD Jun 20, 2025 18:44
== END 2025-06-20 16:00 | disposition home or self-care (01) | DRG 469 ==
LOC: ER 08:14 → ED HOLD 11:39 → UNDOADMIN 11:39 → ED HOLD 20:30 → PCU 3S 23:55 → ORTHO 4S 06-14 00:11
PROVIDERS: ADMIT Internal Medicine; ATTEND Internal Medicine
PROC: 5A1D70Z Performance of Urinary Filtration, Intermittent, Less than 6 Hours Per Day (ICD-10-PCS; principal; 2025-06-10)
PROC: 0JH63XZ Insertion of Tunneled Vascular Access Device into Chest Subcutaneous Tissue and Fascia, Percutaneous Approach (ICD-10-PCS; 2025-06-10)
PROC: 02HV33Z Insertion of Infusion Device into Superior Vena Cava, Percutaneous Approach (ICD-10-PCS; 2025-06-10)
PROC: B5181ZA Fluoroscopy of Superior Vena Cava using Low Osmolar Contrast, Guidance (ICD-10-PCS; 2025-06-10)
PROC: 5A1D70Z Performance of Urinary Filtration, Intermittent, Less than 6 Hours Per Day (ICD-10-PCS; 2025-06-11)
PROC: BW211ZZ Computerized Tomography (CT Scan) of Abdomen and Pelvis using Low Osmolar Contrast (ICD-10-PCS; 2025-06-11)
PROC: 5A1D70Z Performance of Urinary Filtration, Intermittent, Less than 6 Hours Per Day (ICD-10-PCS; 2025-06-13)
PROC: 5A1D70Z Performance of Urinary Filtration, Intermittent, Less than 6 Hours Per Day (ICD-10-PCS; 2025-06-15)
PROC: 5A1D70Z Performance of Urinary Filtration, Intermittent, Less than 6 Hours Per Day (ICD-10-PCS; 2025-06-17)
PROC: 5A1D70Z Performance of Urinary Filtration, Intermittent, Less than 6 Hours Per Day (ICD-10-PCS; 2025-06-19)
DX: N17.9 Acute kidney failure, unspecified (principal); I13.2 Hypertensive heart and chronic kidney disease with heart failure and with stage 5 chronic kidney disease, or end stage renal disease; E43 Unspecified severe protein-calorie malnutrition; I82.612 Acute embolism and thrombosis of superficial veins of left upper extremity; E88.09 Other disorders of plasma-protein metabolism, not elsewhere classified; D63.1 Anemia in chronic kidney disease; I50.32 Chronic diastolic (congestive) heart failure; Z99.2 Dependence on renal dialysis; N18.6 End stage renal disease; J45.909 Unspecified asthma, uncomplicated; Z68.35 Body mass index [BMI] 35.0-35.9, adult; K59.00 Constipation, unspecified; N06.20 Isolated proteinuria with diffuse membranous glomerulonephritis, unspecified; E87.5 Hyperkalemia; F17.210 Nicotine dependence, cigarettes, uncomplicated; B85.0 Pediculosis due to Pediculus humanus capitis; F41.9 Anxiety disorder, unspecified; Z79.01 Long term (current) use of anticoagulants; Z79.899 Other long term (current) drug therapy; Z91.148 Patient's other noncompliance with medication regimen for other reason
CPT/HCPCS: 36415; 36558; 71045; 71250; 74018; 74176; 76770; 76937; 77001; 80048; 80053; 80069; 80305; 81001; 81003; 82570; 82728; 82948; 83540; 83550; 83615; 83735; 83970; 84100; 84156; 85025; 85651; 86038; 86060; 86160; 86256; 86480; 86703; 86704; 86706; 86803; 87081; 87088; 87340; 87522; 93306; 93971; 94640; 94664; 94668; 94760; 96365; 99152; 99153; 99291; A4333; A4615; A4620; A6258; A6449; A9270; C1750; E1594; G0257; G0378; J0612; J1644; J1756; J1815; J2151; J2270; J3490; J7030; J7040; J7070; Q0163; Q4081